=== PATIENT | female | born 1970 | race Caucasian/White ===

== ENCOUNTER 2016-12-11 22:16 | Inpatient (IN) | payer OTHER ==
[2016-12-11] MEDS ORDERED: Sodium Chloride 0.9% 1,000 ML IV ONE (22:40)
[2016-12-11] MEDS ORDERED: Insulin Regular, Human 100 Units/ML 3 ML Vial SUBCUT STA (22:41)
[2016-12-11] MEDS ORDERED: Ondansetron 4 MG/2 ML SDV IVPUSH ONE (22:49)
--- NOTE | 2016-12-11 23:38 | EDM.PDOC ---
ED HPI DIABETIC EMERGENCY - General Chief Complaint: Diabetic Complaint Stated Complaint: DIABETES PROBLEMS Time Seen by Provider: 12/11/16 22:26 Source of Information: Reports: Patient, RN notes reviewed History Limitations: Reports: No limitations - History of Present Illness INITIAL COMMENTS - FREE TEXT/NARRATIVE: The patient states that she is a type I diabetic. She uses an insulin pump. Her blood sugar was 268 around 10:00 this morning, but up to 498 around noon. It the shawn and fell, most recently 356 around 21:56. The patient states that she developed nausea and emesis around noon. She states that she has a history of diabetic ketoacidosis in the past. She states she has been hospitalized for twice, most recently about 2 years ago. She denies recent illness. - Related Data Allergies/ADRs: Allergies Allergy/AdvReac Type Severity Reaction Status Date / Time celecoxib [From Celebrex] Allergy Shortness Verified 12/11/16 22:26 of Breath cephalexin Allergy Rash Verified 12/11/16 22:26 gabapentin Allergy Chest Verified 12/11/16 22:26 Tightness metronidazole [From Flagyl] Allergy Other Verified 12/11/16 22:26 sulfamethoxazole Allergy Other Verified 12/11/16 22:26 [From Bactrim] trimethoprim [From Bactrim] Allergy Other Verified 12/11/16 22:26 adhesives Allergy Rash Uncoded 11/16/16 08:22 Home Meds: Home Meds Albuterol [Proair HFA] 2 puff INH Q4HR PRN 11/16/16 [History] Albuterol [Proventil Neb Soln] 1 hr INH QID PRN 11/16/16 [History] DULoxetine [Cymbalta] 30 mg PO DAILY 11/16/16 [History] Fluticasone Furoate [Arnuity Ellipta] 1 spray INH ASDIRECTED 11/16/16 [History] Ibuprofen [Motrin] 800 mg PO BID 11/16/16 [History] Insulin Aspart [NovoLOG] 1 injection SQ ASDIRECTED 11/16/16 [History] Loratadine [Claritin] 10 mg PO DAILY 11/16/16 [History] Metoclopramide [Reglan] 10 mg PO BID PRN 11/16/16 [History] Mometasone/Formoterol [Dulera 100-5 MCG] 2 puff INH BID 11/16/16 [History] buPROPion [Wellbutrin XL] 150 mg PO DAILY 11/16/16 [History] Past Medical History HEENT History: Reports: Allergic rhinitis Respiratory History: Reports: Asthma [employer] History: Reports: Endometriosis Psychiatric History: Reports: Depression Endocrine/Metabolic History: Reports: Diabetes, type I - Past Surgical History HEENT Surgical History: Reports: Oral surgery ([place] teeth extraction) Other HEENT Surgeries/Procedures: wears glasses Female Surgical History: Reports: Tubal ligation, Other (see below) ( Exploratory laparoscopy for endometriosis) Musculoskeletal Surgical History: Reports: Carpal tunnel (bilateral), Shoulder surgery (bilateral, arthroscopic) Social & Family History - Tobacco Use Smoking Status *Q: Current Every Day Smoker Years of Tobacco use: 20 Packs/Tins Daily: 0.5 - Caffeine Use Caffeine Use: Reports: None - Alcohol Use Alcohol Use History: Yes Alcohol Use Frequency: Rarely - Recreational Drug Use Recreational Drug Use: No - Living Situation & Occupation Living situation: Reports: , with significant other (Boyfriend, and his 18-year-old son) 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) ED ROS GENERAL - Review of Systems Review Of Systems: See Below Constitutional: Reports: no symptoms HEENT: Reports: No symptoms Respiratory: Reports: No Symptoms Cardiovascular: Reports: No symptoms Endocrine: Reports: no symptoms GI/Abdominal: Reports: No symptoms : Reports: no symptoms Musculoskeletal: Reports: no symptoms Skin: Reports: no symptoms Neurological: Reports: No Symptoms Psychiatric: Reports: No symptoms Hematologic/Lymphatic: Reports: no symptoms Immunologic: Reports: no symptoms ED EXAM GENERAL NO PERIP PULSE - Physical Exam Exam: See Below Exam Limited By: No limitations General Appearance: alert, WD/WN, mild distress Eye Exam: bilateral eye: EOMI, normal inspection Ears: normal external exam, hearing grossly normal Nose: normal inspection, no blood Throat/Mouth: Normal inspection, Normal lips, Normal teeth, Normal gums, Normal voice, No airway compromise, Other (Dry oral mucosa) Head: atraumatic, normocephalic Neck: normal inspection, supple, non-tender, full range of motion Respiratory/Chest: no respiratory distress, lungs clear, normal breath sounds, no accessory muscle use, chest non-tender, other (Tachypneic) Cardiovascular: normal peripheral pulses, no edema, no gallop, no JVD, no murmur , no rub, tachycardia (Regular) GI/Abdominal: normal bowel sounds, soft, non tender, no organomegaly, no distention, no abnormal bruit, no mass Back Exam: normal inspection, full range of motion, NT Extremities: normal inspection, normal range of motion, non-tender, normal capillary refill Neurological: alert, oriented, normal cognition, no motor/sensory deficits Psychiatric: normal affect Skin Exam: Warm, Dry, Intact, Normal color, No rash Lymphatic: no adenopathy EKG INTERPRETATION EKG Date: 12/11/16 Time: 23:51 Rhythm: other (Sinus tachycardia) Rate (beats/min): 113 [place]: normal P-wave: present QRS: normal ST-T: normal QT: normal Comparison: change from previous EKG (11/16/2016 - NSR) Course - Vital Signs Last Recorded V/S: Last Vital Signs Temp 36.3 C 12/11/16 22:23 Pulse 101 H 12/11/16 22:23 Resp 16 12/11/16 22:23 BP 123/66 12/11/16 22:23 Pulse Ox 100 12/11/16 22:23 - Orders/Labs/Meds Orders: Active Orders 24 hr Category Date Time Status Accu Check [Blood Glucose Check, Bedside] [RC] ONETIME Care 12/11/16 22:27 Active EKG Documentation Completion [RC] URGENT Care 12/11/16 23:46 Active Nothing per Oral Now Diet [DIET] Diet 12/11/16 Breakfast Active Chest 2V [CR] Stat Exams 12/11/16 22:38 Ordered BASIC METABOLIC PANEL,BMP [CHEM] Stat Lab 12/11/16 23:56 Ordered Insulin Regular, Human [HumuLIN R] 100 unit Med 12/11/16 22:45 Active Sodium Chloride 0.9% [Normal Saline] 99 ml IV TITRATE Medication Orders Insulin Human Regular 100 unit (/ Sodium Chloride) 100 mls @ 6 mls/hr IV TITRATE JASWINDER; 6 UNITS/HR PRN Reason: Protocol Last Admin: 12/11/16 23:00 Dose: 6 units/hr, 6 mls/hr Labs: Laboratory Tests 12/11/16 12/11/16 12/11/16 Range/Units 22:35 22:35 22:35 WBC 23.51 H (3.98-10.04) K/mm3 RBC 4.98 (3.98-5.22) M/mm3 Hgb 15.8 H (11.2-15.7) gm/L Hct 48.3 H (34.1-44.9) % MCV 97.0 H (79.4-94.8) fl MCH 31.7 (25.6-32.2) pg MCHC 32.7 (32.2-35.5) g/dl RDW Std Deviation 46.2 (36.4-46.3) fL Plt Count 395 H (182-369) K/mm3 MPV 11.4 (9.4-12.3) fl Neutrophils % (Manual) 88 H (40-60) % Band Neutrophils % 5 (0-10) % Lymphocytes % (Manual) 3 L (20-40) % Atypical Lymphs % 0 % Monocytes % (Manual) 4 (2-10) % Eosinophils % (Manual) 0 L (0.7-5.8) % Basophils % (Manual) 0 L (0.1-1.2) Toxic Granulation Few Platelet Estimate Adequate Plt Morphology Comment Normal RBC Morph Comment Normal Puncture Site ABG pH (7.35-7.45) ABG pCO2 (35.0-45.0) mmHg ABG pO2 (80.0-100.0) mmHg ABG HCO3 (22.0-26.0) meq/L ABG O2 Saturation (96.0-97.0) % ABG Base Excess (-2-2.0) A-a Gradient mmHg FiO2 (21.00-100.00) % Sodium 131 L (136-145) mEq/L Potassium 6.0 H (3.5-5.1) mEq/L Chloride 92 L (98-107) mEq/L Carbon Dioxide 10 L (21-32) mEq/L Anion Gap 35.0 H (5-15) BUN 28 H (7-18) mg/dL Creatinine 1.5 H (0.55-1.02) mg/dL Est Cr Clr Drug Dosing 43.07 mL/min Estimated GFR (MDRD) 38 (>60) mL/min BUN/Creatinine Ratio 18.7 H (14-18) Glucose 580 H* (74-106) mg/dL Lactic Acid (0.4-2.0) mmol/L Calcium 9.1 (8.5-10.1) mg/dL Magnesium 2.3 (1.8-2.4) mg/dl Total Bilirubin 0.6 (0.2-1.0) mg/dL AST 25 (15-37) U/L ALT 24 (14-59) U/L Alkaline Phosphatase 70 (46-116) U/L Total Protein 7.8 (6.4-8.2) g/dl Albumin 4.3 (3.4-5.0) g/dl Globulin 3.5 gm/dL Albumin/Globulin Ratio 1.2 (1-2) Urine Color (Yellow) Urine Appearance (Clear) Urine pH (5.0-8.0) Ur Specific [place] (1.005-1.030) Urine Protein (Negative) Urine Glucose (UA) (Negative) Urine Ketones (Negative) Urine Occult Blood (Negative) Urine Nitrite (Negative) Urine Bilirubin (Negative) Urine Urobilinogen (0.2-1.0) Ur Leukocyte Esterase (Negative) Urine RBC (0-5) /hpf Urine WBC (0-5) /hpf Urine WBC Clumps (NOT SEEN) /hpf Ur Epithelial Cells (0-5) /hpf Urine Bacteria (FEW) /hpf Urine Mucus (FEW) /hpf Urine Yeast (NOT SEEN) Urine HCG, Qual (NEGATIVE) Ketones 10.47 (0.0-0.3) mM 12/11/16 12/11/16 12/11/16 Range/Units 22:54 23:05 23:10 WBC (3.98-10.04) K/mm3 RBC (3.98-5.22) M/mm3 Hgb (11.2-15.7) gm/L Hct (34.1-44.9) % MCV (79.4-94.8) fl MCH (25.6-32.2) pg MCHC (32.2-35.5) g/dl RDW Std Deviation (36.4-46.3) fL Plt Count (182-369) K/mm3 MPV (9.4-12.3) fl Neutrophils % (Manual) (40-60) % Band Neutrophils % (0-10) % Lymphocytes % (Manual) (20-40) % Atypical Lymphs % % Monocytes % (Manual) (2-10) % Eosinophils % (Manual) (0.7-5.8) % Basophils % (Manual) (0.1-1.2) Toxic Granulation Platelet Estimate Plt Morphology Comment RBC Morph Comment Puncture Site Rt brachial ABG pH 7.04 L* (7.35-7.45) ABG pCO2 20.0 L (35.0-45.0) mmHg ABG pO2 96.0 (80.0-100.0) mmHg ABG HCO3 5.4 L (22.0-26.0) meq/L ABG O2 Saturation 93.0 L (96.0-97.0) % ABG Base Excess -23.6 L (-2-2.0) A-a Gradient 29 mmHg FiO2 21.00 (21.00-100.00) % Sodium (136-145) mEq/L Potassium (3.5-5.1) mEq/L Chloride (98-107) mEq/L Carbon Dioxide (21-32) mEq/L Anion Gap (5-15) BUN (7-18) mg/dL Creatinine (0.55-1.02) mg/dL Est Cr Clr Drug Dosing mL/min Estimated GFR (MDRD) (>60) mL/min BUN/Creatinine Ratio (14-18) Glucose (74-106) mg/dL Lactic Acid 3.5 H (0.4-2.0) mmol/L Calcium (8.5-10.1) mg/dL Magnesium (1.8-2.4) mg/dl Total Bilirubin (0.2-1.0) mg/dL AST (15-37) U/L ALT (14-59) U/L Alkaline Phosphatase (46-116) U/L Total Protein (6.4-8.2) g/dl Albumin (3.4-5.0) g/dl Globulin gm/dL Albumin/Globulin Ratio (1-2) Urine Color (Yellow) Urine Appearance (Clear) Urine pH (5.0-8.0) Ur Specific [place] (1.005-1.030) Urine Protein (Negative) Urine Glucose (UA) (Negative) Urine Ketones (Negative) Urine Occult Blood (Negative) Urine Nitrite (Negative) Urine Bilirubin (Negative) Urine Urobilinogen (0.2-1.0) Ur Leukocyte Esterase (Negative) Urine RBC (0-5) /hpf Urine WBC (0-5) /hpf Urine WBC Clumps (NOT SEEN) /hpf Ur Epithelial Cells (0-5) /hpf Urine Bacteria (FEW) /hpf Urine Mucus (FEW) /hpf Urine Yeast (NOT SEEN) Urine HCG, Qual Negative (NEGATIVE) Ketones (0.0-0.3) mM 12/11/16 Range/Units 23:10 WBC (3.98-10.04) K/mm3 RBC (3.98-5.22) M/mm3 Hgb (11.2-15.7) gm/L Hct (34.1-44.9) % MCV (79.4-94.8) fl MCH (25.6-32.2) pg MCHC (32.2-35.5) g/dl RDW Std Deviation (36.4-46.3) fL Plt Count (182-369) K/mm3 MPV (9.4-12.3) fl Neutrophils % (Manual) (40-60) % Band Neutrophils % (0-10) % Lymphocytes % (Manual) (20-40) % Atypical Lymphs % % Monocytes % (Manual) (2-10) % Eosinophils % (Manual) (0.7-5.8) % Basophils % (Manual) (0.1-1.2) Toxic Granulation Platelet Estimate Plt Morphology Comment RBC Morph Comment Puncture Site ABG pH (7.35-7.45) ABG pCO2 (35.0-45.0) mmHg ABG pO2 (80.0-100.0) mmHg ABG HCO3 (22.0-26.0) meq/L ABG O2 Saturation (96.0-97.0) % ABG Base Excess (-2-2.0) A-a Gradient mmHg FiO2 (21.00-100.00) % Sodium (136-145) mEq/L Potassium (3.5-5.1) mEq/L Chloride (98-107) mEq/L Carbon Dioxide (21-32) mEq/L Anion Gap (5-15) BUN (7-18) mg/dL Creatinine (0.55-1.02) mg/dL Est Cr Clr Drug Dosing mL/min Estimated GFR (MDRD) (>60) mL/min BUN/Creatinine Ratio (14-18) Glucose (74-106) mg/dL Lactic Acid (0.4-2.0) mmol/L Calcium (8.5-10.1) mg/dL Magnesium (1.8-2.4) mg/dl Total Bilirubin (0.2-1.0) mg/dL AST (15-37) U/L ALT (14-59) U/L Alkaline Phosphatase (46-116) U/L Total Protein (6.4-8.2) g/dl Albumin (3.4-5.0) g/dl Globulin gm/dL Albumin/Globulin Ratio (1-2) Urine Color Yellow (Yellow) Urine Appearance Clear (Clear) Urine pH 5.0 (5.0-8.0) Ur Specific [place] 1.025 (1.005-1.030) Urine Protein 1+ H (Negative) Urine Glucose (UA) 2+ H (Negative) Urine Ketones 3+ H (Negative) Urine Occult Blood 3+ H (Negative) Urine Nitrite Negative (Negative) Urine Bilirubin Negative (Negative) Urine Urobilinogen 0.2 (0.2-1.0) Ur Leukocyte Esterase Negative (Negative) Urine RBC 10-20 H (0-5) /hpf Urine WBC 0-5 (0-5) /hpf Urine WBC Clumps Not seen (NOT SEEN) /hpf Ur Epithelial Cells 5-10 H (0-5) /hpf Urine Bacteria Few (FEW) /hpf Urine Mucus Not seen (FEW) /hpf Urine Yeast Not seen (NOT SEEN) Urine HCG, Qual (NEGATIVE) Ketones (0.0-0.3) mM Meds: Medications Generic Name Dose Route Start Last Admin Trade Name Freq PRN Reason Stop Dose Admin Insulin Human Regular 100 unit 100 mls @ 6 mls/hr 12/11/16 22:45 12/11/16 23: 00 / Sodium Chloride IV 6 units/hr TITRATE JASWINDER 6 mls/hr Protocol Administration 6 UNITS/HR Discontinued Medications Generic Name Dose Route Start Last Admin Trade Name Freq PRN Reason Stop Dose Admin Sodium Chloride 1,000 mls @ 1,000 mls/hr 12/11/16 22:40 12/11/16 22:50 Normal Saline IV 12/11/16 23:39 1,000 mls/hr ONETIME ONE Administration Insulin Human Regular 7 unit 12/11/16 22:41 12/11/16 22:49 Humulin R SUBCUT 12/11/16 22:42 7 unit ONETIME STA Administration Protocol Ondansetron HCl 8 mg 12/11/16 22:49 12/11/16 22:54 Zofran IVPUSH 12/11/16 22:50 8 mg ONETIME ONE Administration - Radiology Interpretation Free Text/Narrative:: Two-view chest radiograph appears to be grossly normal. Cardiac silhouette is within normal limits. No pulmonary vascular congestion. No pleural effusions. No focal infiltrate. No pneumothorax. Bilateral nipple shadows noted. Formal read per the Radiologist pending. - Re-Assessments/Exams Free Text/Narrative Re-Assessment/Exam: 12/11/16 23:47 Test results discussed with the patient and her boyfriend. The patient is suffering from severe diabetic ketoacidosis. No infection found. She will need to be admitted to the ICU. Case then discussed with Dr. Choudhury at 23:45. He accepts the patient for admission to the ICU. Departure - Departure Time of Disposition: 23:58 Disposition: Admitted As Inpatient 68 Condition: fair Clinical Impression: Diabetic ketoacidosis - My Orders Last 24 Hours: My Active Orders 12/11/16 22:27 Accu Check [Blood Glucose Check, Bedside] [RC] ONETIME 12/11/16 22:38 Chest 2V [CR] Stat 12/11/16 22:45 Insulin Regular, Human [HumuLIN R] 100 unit Sodium Chloride 0.9% [Normal Saline] 99 ml IV TITRATE 12/11/16 23:46 EKG Documentation Completion [RC] URGENT 12/11/16 23:56 BASIC METABOLIC PANEL,BMP [CHEM] Stat 12/11/16 Breakfast Nothing per Oral Now Diet [DIET] - Assessment/Plan Last 24 Hours: My Active Orders 12/11/16 22:27 Accu Check [Blood Glucose Check, Bedside] [RC] ONETIME 12/11/16 22:38 Chest 2V [CR] Stat 12/11/16 22:45 Insulin Regular, Human [HumuLIN R] 100 unit Sodium Chloride 0.9% [Normal Saline] 99 ml IV TITRATE 12/11/16 23:46 EKG Documentation Completion [RC] URGENT 12/11/16 23:56 BASIC METABOLIC PANEL,BMP [CHEM] Stat 12/11/16 Breakfast Nothing per Oral Now Diet [DIET]
[2016-12-12] MEDS ORDERED: Ondansetron 4 MG/2 ML SDV IV PRN (01:20)
[2016-12-12] MEDS ORDERED: Acetaminophen 325 MG Tab PO PRN (01:20)
[2016-12-12] MEDS ORDERED: Bisacodyl 5 MG Tab PO PRN (01:20)
[2016-12-12] MEDS ORDERED: Polyethylene Glycol 3350 Powder 17 GM Packet PO PRN (01:20)
[2016-12-12] MEDS ORDERED: Temazepam 15 MG Cap PO PRN (01:20)
[2016-12-12] MEDS ORDERED: Albuterol/Ipratropium 3.0-0.5 MG/3 ML Neb Soln NEB PRN (01:20)
[2016-12-12] MEDS ORDERED: HYDROmorphone 1 MG/ML Syringe IVPUSH PRN (01:20)
[2016-12-12] MEDS ORDERED: LORazepam 2 MG/ML MDV IV PRN (01:20)
[2016-12-12] MEDS ORDERED: Promethazine 12.5 MG in Sodium Chloride 0.9% 50 ML IV PRN (01:20)
[2016-12-12] MEDS ORDERED: Acetaminophen/HYDROcodone 325-5 MG Tab PO PRN (01:20)
[2016-12-12] MEDS ORDERED: Metoclopramide 10 MG Tab PO PRN (01:24)
[2016-12-12] MEDS ORDERED: FLUTICASONE FUROATE INH SCH (01:30)
[2016-12-12] MEDS ORDERED: INSULIN ASPART SQ SCH (01:30)
[2016-12-12] MEDS ORDERED: Sodium Chloride 0.9% 1,000 ML IV SCH (01:30)
--- NOTE | 2016-12-12 01:35 | PCM.HP ---
H&P History of Present Illness - General Date of Service: 12/12/16 Admit Problem/Dx: DKA Source of Information: Patient, Family, Provider, RN notes reviewed History Limitations: Reports: No limitations - History of Present Illness Initial Comments - Free Text/Narative: his is a 46 yo white female with past medical hx/o DM1 on insulin pump who comes in with symptomatic hyperglycemia and was found in DKA. Her initial ED work up shows CBC remarkable for WBC of 23.51, Hgb of 15.8, Hct of 48.3 and Platelet of 395. Her chemistry is significant for Na of 131, K 6, Cl 92, CO2 10 , AG 35, BUN 28, Cr 1.5, BS 580, and LA 3.5. Her UA and CXR shows not acute abnormal findings. She was admitted for treatment of DKA. Lower Back Pain Score (Numeric/FACES): 6 - Related Data Allergies/Adverse Reactions: Allergies Allergy/AdvReac Type Severity Reaction Status Date / Time celecoxib [From Celebrex] Allergy Shortness Verified 12/11/16 22:26 of Breath cephalexin Allergy Rash Verified 12/11/16 22:26 gabapentin Allergy Chest Verified 12/11/16 22:26 Tightness metronidazole [From Flagyl] Allergy Other Verified 12/11/16 22:26 sulfamethoxazole Allergy Other Verified 12/11/16 22:26 [From Bactrim] trimethoprim [From Bactrim] Allergy Other Verified 12/11/16 22:26 adhesives Allergy Rash Uncoded 11/16/16 08:22 Home Medications: Home Meds Albuterol [Proair HFA] 2 puff INH Q4HR PRN 11/16/16 [History] Albuterol [Proventil Neb Soln] 1 hr INH QID PRN 11/16/16 [History] DULoxetine [Cymbalta] 30 mg PO DAILY 11/16/16 [History] Fluticasone Furoate [Arnuity Ellipta] 1 spray INH ASDIRECTED 11/16/16 [History] Ibuprofen [Motrin] 800 mg PO BID 11/16/16 [History] Insulin Aspart [NovoLOG] 1 injection SQ ASDIRECTED 11/16/16 [History] Loratadine [Claritin] 10 mg PO DAILY 11/16/16 [History] Metoclopramide [Reglan] 10 mg PO BID PRN 11/16/16 [History] Mometasone/Formoterol [Dulera 100-5 MCG] 2 puff INH BID 11/16/16 [History] buPROPion [Wellbutrin XL] 150 mg PO DAILY 11/16/16 [History] Past Medical History HEENT History: Reports: Allergic rhinitis Respiratory History: Reports: Asthma 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 History: Reports: Endometriosis Psychiatric History: Reports: Depression Endocrine/Metabolic History: Reports: Diabetes, type I - Past Surgical History HEENT Surgical History: Reports: Oral surgery ([place] teeth extraction) Other HEENT Surgeries/Procedures: wears glasses Female Surgical History: Reports: Tubal ligation, Other (see below) ( Exploratory laparoscopy for endometriosis) Musculoskeletal Surgical History: Reports: Carpal tunnel (bilateral), Shoulder surgery (bilateral, arthroscopic) Social & Family History - Tobacco Use Smoking Status *Q: Current Every Day Smoker Years of Tobacco use: 20 Packs/Tins Daily: 0.5 - Caffeine Use Caffeine Use: Reports: None - Recreational Drug Use Recreational Drug Use: No - Living Situation & Occupation Living situation: Reports: , with significant other (Boyfriend, and his 18-year-old son) 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 Denies: fever, chills HEENT: Reports: contact lenses Pulmonary: Reports: No Symptoms Cardiovascular: Denies: chest pain Gastrointestinal: Reports: Decreased appetite, Nausea, Vomiting. Denies: Abdominal pain Genitourinary: Reports: no symptoms Musculoskeletal: Reports: no symptoms Skin: Denies: cyanosis, rash, erythema Psychiatric: Denies: depression, anxiety, hallucinations Neurological: Denies: Confusion, Difficulty Walking, Gait Disturbance Hematologic/Lymphatic: Reports: no symptoms Immunologic: Reports: no symptoms Exam - Exam Exam: See Below - Vital Signs Vital Signs: Last Vital Signs Temp 36.3 C 12/11/16 22:23 Pulse 112 H 12/12/16 00:45 Resp 22 H 12/12/16 00:45 BP 125/68 12/12/16 00:45 Pulse Ox 100 12/12/16 00:45 Weight: 68.039 kg - Exam General: alert, oriented, cooperative, mild distress HEENT: Conjunctiva clear, EACs clear, EOMI, Hearing intact, Nares patent, Normal nasal septum, Posterior pharynx clear, PERRLA Neck: supple, trachea midline, 2+ carotid pulse wo bruit Lungs: Clear to auscultation, Normal respiratory effort Cardiovascular: regular rate, tachycardia Abdomen: normal bowel sounds, soft (Female) Exam: Deferred Rectal (Female) Exam: Deferred Back Exam: normal inspection, decreased range of motion Extremities: normal inspection, normal pulses. No: clubbing, cyanosis, calf tenderness, edema Peripheral Pulses: 3+: posterior tibial (L), posterior tibial (R), dorsalis pedis (L), dorsalis pedis (R) Skin: warm, dry, intact Neuro Extensive - Mental Status: oriented x3, normal cognition, memory intact Neuro Extensive - Motor, Sensory, Reflexes: CN II-XII intact, normal gait Psychiatric: alert, normal affect, anxious - Patient Data Result Diagrams: 12/12/16 05:23 12/12/16 08:30 EKG INTERPRETATION EKG Date: 12/11/16 Time: 23:53 Rhythm: other (Sinus Tachycardia) Rate (beats/min): 113 [place]: normal P-wave: present QRS: normal ST-T: normal QT: normal Comparison: change from previous EKG *Q Meaningful Use (ADM) - VTE *Q VTE Criteria *Q: - Stroke *Q Stroke Criteria *Q: - AMI *Q AMI Criteria *Q: Problem List Initiated/Reviewed/Updated: Yes Orders Last 24hrs: Active Orders 24 hr Category Date Time Status Height and Weight [RC] DAILY Care 12/12/16 01:20 Ordered Intake and Output [RC] QSHIFT Care 12/12/16 01:22 Ordered Oxygen Therapy [RC] PRN Care 12/12/16 01:21 Ordered RT Aerosol Therapy [RC] ASDIRECTED Care 12/12/16 01:23 Ordered Up With Assistance [RC] ASDIRECTED Care 12/12/16 01:20 Ordered Up ad Tali [RC] ASDIRECTED Care 12/12/16 01:20 Ordered VTE/DVT Education [RC] PER UNIT ROUTINE Care 12/12/16 01:21 Ordered Vital Signs [RC] Q4H Care 12/12/16 01:21 Ordered Consult to Case Management [CONS] Routine Cons 12/12/16 01:23 Ordered Consult to Diabetic Nurse Specialist [CONS] Routine Cons 12/12/16 01:23 Ordered Consult to Clinical Specialist Vascular [CONS] Routine Cons 12/12/16 01:23 Ordered Consult to Intern Brand [CONS] Routine Cons 12/12/16 01:23 Ordered Consistent Carbohydrate Diet [DIET] Diet 12/12/16 Breakfast Ordered C-REACTIVE PROTEIN [CHEM] AM Lab 12/12/16 05:11 Ordered CBC WITH AUTO DIFF [HEME] AM Lab 12/12/16 05:11 Ordered CBC WITH AUTO DIFF [HEME] AM Lab 12/13/16 05:11 Ordered CBC WITH AUTO DIFF [HEME] AM Lab 12/14/16 05:11 Ordered CBC WITH AUTO DIFF [HEME] AM Lab 12/15/16 05:11 Ordered CBC WITH AUTO DIFF [HEME] AM Lab 12/16/16 05:11 Ordered MAGNESIUM [CHEM] AM Lab 12/12/16 05:11 Ordered MAGNESIUM [CHEM] AM Lab 12/13/16 05:11 Ordered MAGNESIUM [CHEM] AM Lab 12/14/16 05:11 Ordered MAGNESIUM [CHEM] AM Lab 12/15/16 05:11 Ordered MAGNESIUM [CHEM] AM Lab 12/16/16 05:11 Ordered Acetaminophen [Tylenol] Med 12/12/16 01:20 Ordered 650 mg PO Q4H PRN Acetaminophen/HYDROcodone [[place] 325-5 MG] Med 12/12/16 01:20 Ordered 1 tab PO Q4H PRN Albuterol/Ipratropium [DuoNeb 3.0-0.5 MG/3 ML] Med 12/12/16 01:20 Ordered 3 ml NEB Q4H PRN Bisacodyl [Dulcolax] Med 12/12/16 01:20 Ordered 5 mg PO DAILY PRN DULoxetine [Cymbalta] Med 12/12/16 09:00 Ordered 30 mg PO DAILY Docusate Sodium/Sennosides [Senna Plus] Med 12/12/16 01:20 Ordered 1 tab PO BID PRN Enoxaparin [Lovenox] Med 12/12/16 09:00 Ordered 30 mg SUBCUT DAILY Fluticasone Furoate [Arnuity Ellipta] Med 12/12/16 01:30 Ordered 1 spray INH ASDIRECTED HYDROmorphone [Dilaudid] Med 12/12/16 01:20 Ordered 0.25 mg IVPUSH Q2H PRN Insulin Aspart Med 12/12/16 01:30 Ordered 1 injection SQ ASDIRECTED LORazepam [Ativan] Med 12/12/16 01:20 Ordered 1 mg IV Q6H PRN Loratadine [Claritin] Med 12/12/16 09:00 Ordered 10 mg PO DAILY Metoclopramide [Reglan] Med 12/12/16 01:24 Ordered 10 mg PO BID PRN Mometasone/Formoterol [Dulera 100-5 MCG] Med 12/12/16 09:00 Ordered 2 puff IH BID Ondansetron [Zofran] Med 12/12/16 01:20 Ordered 4 mg IV Q6H PRN Pantoprazole [Protonix IV] Med 12/12/16 09:00 Ordered 40 mg IV Q12HR Polyethylene Glycol 3350 [MiraLAX] Med 12/12/16 01:20 Ordered 17 gm PO DAILY PRN Promethazine [Phenergan] 12.5 mg Med 12/12/16 01:20 Ordered Sodium Chloride 0.9% [Normal Saline] 50 ml IV Q6H Sodium Chloride 0.9% @ 125 MLS/HR (1000ml) Med 12/12/16 01:30 Ordered Sodium Chloride 0.9% [Normal Saline] 1,000 ml IV ASDIRECTED Temazepam [Restoril] Med 12/12/16 01:20 Ordered 30 mg PO BEDTIME PRN buPROPion [Wellbutrin XL] Med 12/12/16 09:00 Ordered 150 mg PO DAILY Resuscitation Status Routine Resus Stat 12/12/16 01:20 Ordered Medication Orders Acetaminophen (Tylenol) 650 mg PO Q4H PRN PRN Reason: Pain (Mild 1-3)/fever Acetaminophen/Hydrocodone Bitart ([place] 325-5 Mg) 1 tab PO Q4H PRN PRN Reason: Pain (moderate 4-6) Albuterol/Ipratropium (Duoneb 3.0-0.5 Mg/3 Ml) 3 ml NEB Q4H PRN PRN Reason: Shortness Of Breath/wheezing Bisacodyl (Dulcolax) 5 mg PO DAILY PRN PRN Reason: Constipation Bupropion HCl (Wellbutrin Xl) 150 mg PO DAILY JASWINDER Duloxetine HCl (Cymbalta) 30 mg PO DAILY JASWINDER Enoxaparin Sodium (Lovenox) 30 mg SUBCUT DAILY JASWINDER Hydromorphone HCl (Dilaudid) 0.25 mg IVPUSH Q2H PRN PRN Reason: Pain (severe 7-10) Insulin Human Regular 100 unit (/ Sodium Chloride) 100 mls @ 6 mls/hr IV TITRATE JASWINDER; 6 UNITS/HR PRN Reason: Protocol Last Admin: 12/11/16 23:00 Dose: 6 units/hr, 6 mls/hr Promethazine HCl 12.5 mg/ (Sodium Chloride) 50.5 mls @ 100 mls/hr IV Q6H PRN PRN Reason: Nausea/Vomiting Sodium Chloride (Normal Saline) 1,000 mls @ 125 mls/hr IV ASDIRECTED JASWINDER Loratadine (Claritin) 10 mg PO DAILY JASWINDER Lorazepam (Ativan) 1 mg IV Q6H PRN PRN Reason: Anxiety Metoclopramide HCl (Reglan) 10 mg PO BID PRN PRN Reason: Heartburn Mometasone Furoate/Formoterol Fumar (Dulera 100-5 Mcg) 2 puff IH BIDRT JASWINDER Non-Formulary Medication (Fluticasone Furoate [Arnuity Ellipta]) 1 spray INH ASDIRECTED [facility] Non-Formulary Medication (Insulin Aspart) 1 injection SQ ASDIRECTED JASWINDER Ondansetron HCl (Zofran) 4 mg IV Q6H PRN PRN Reason: Nausea/Vomiting Pantoprazole Sodium (Protonix Iv) 40 mg IV Q12HR [facility] Polyethylene Glycol (Miralax) 17 gm PO DAILY PRN PRN Reason: Constipation Senna/Docusate Sodium (Senna Plus) 1 tab PO BID PRN PRN Reason: Constipation Temazepam (Restoril) 30 mg PO BEDTIME PRN PRN Reason: Sleep Assessment/Plan Comment:: Assessment/Plan: DKA w/o Coma - Krystina 10.47 - Long standing hx/o DM1 - She is on insulin pump - DKA protocol - Aggressive fluid hydration Leukocytosis - Likely 2/2 stress - UA and CXR were both negative Nicotine Dependence - Offered Nicotine Patch Dehydration - Aggressively hydrating Chronic: Asthma AR Depression Plan: Admit to ICU DKA protocol Hold insulin pump Resume Home Meds Routine AM Labs PT/OT consult SW/CM for d/c planning School Services Officer
--- NOTE | 2016-12-12 08:03 | PCM.PN ---
- General Info Date of Service: 12/12/16 Admission Dx/Problem (Free Text): DKA Subjective Update: Follow Up Functional Status: Reports: pain controlled, ambulating, urinating. Denies: tolerating diet, new symptoms - Review of Systems General: Denies: Fever, Malaise HEENT: Reports: no symptoms Pulmonary: Denies: shortness of breath Cardiovascular: Denies: Chest Pain Gastrointestinal: Denies: Abdominal pain, Nausea, Vomiting Genitourinary: Reports: no symptoms Musculoskeletal: Reports: no symptoms Skin: Reports: no symptoms Neurological: Denies: Confusion Psychiatric: Denies: depression, anxiety, hallucinations Systems Review Comment:: She did not sleep well last night due to slamming door adjacent to her. She feels better however. She is still on insulin drip awaiting repeat BMP. - Patient Data Vitals - most recent: Last Vital Signs Temp 36.3 C 12/12/16 02:33 Pulse 110 H 12/12/16 03:52 Resp 20 12/12/16 03:52 BP 132/69 12/12/16 03:52 Pulse Ox 96 12/12/16 03:52 Weight - most recent: 68.039 kg I&O - last 24 hours: Intake & Output 12/11/16 12/12/16 12/12/16 22:59 06:59 14:59 Intake Total 1025 Balance 1025 Lab Results last 24 hrs: Laboratory Results - last 24 hr 12/12/16 12/12/16 12/12/16 Range/Units 01:50 05:23 05:23 WBC 22.22 H (3.98-10.04) K/mm3 RBC 4.66 (3.98-5.22) M/mm3 Hgb 14.8 (11.2-15.7) gm/L Hct 43.7 (34.1-44.9) % MCV 93.8 (79.4-94.8) fl MCH 31.8 (25.6-32.2) pg MCHC 33.9 (32.2-35.5) g/dl RDW Std Deviation 43.0 (36.4-46.3) fL Plt Count 391 H (182-369) K/mm3 MPV 11.3 (9.4-12.3) fl Neut % (Auto) 87.5 H (34.0-71.1) % Lymph % (Auto) 4.2 L (19.3-51.7) % [place] % (Auto) 7.8 (4.7-12.5) % Eos % (Auto) 0.2 L (0.7-5.8) Baso % (Auto) 0.0 L (0.1-1.2) % Neut # 19.41 H (1.56-6.13) K/mm3 Lymph # 0.94 L (1.18-3.74) K/mm3 [place] # 1.74 H (0.24-0.36) K/mm3 Eos # 0.05 (0.04-0.36) K/mm3 Baso # 0.01 (0.01-0.08) K/mm3 Manual Slide Review Abnormal smear POC Glucose 351 H (70-105) mg/dL Magnesium 2.1 (1.8-2.4) mg/dl C-Reactive Protein 0.8 (<1.0) mg/dL Med Orders - Current: Current Medications Acetaminophen (Tylenol) 650 mg PO Q4H PRN PRN Reason: Pain (Mild 1-3)/fever Acetaminophen/Hydrocodone Bitart ([place] 325-5 Mg) 1 tab PO Q4H PRN PRN Reason: Pain (moderate 4-6) Albuterol/Ipratropium (Duoneb 3.0-0.5 Mg/3 Ml) 3 ml NEB Q4H PRN PRN Reason: Shortness Of Breath/wheezing Bisacodyl (Dulcolax) 5 mg PO DAILY PRN PRN Reason: Constipation Bupropion HCl (Wellbutrin Xl) 150 mg PO DAILY JASWINDER Duloxetine HCl (Cymbalta) 30 mg PO DAILY JASWINDER Enoxaparin Sodium (Lovenox) 30 mg SUBCUT DAILY JASWINDER Hydromorphone HCl (Dilaudid) 0.25 mg IVPUSH Q2H PRN PRN Reason: Pain (severe 7-10) Insulin Human Regular 100 unit (/ Sodium Chloride) 100 mls @ 6 mls/hr IV TITRATE JASWINDER; 6 UNITS/HR PRN Reason: Protocol Last Titration: 12/12/16 02:50 Dose: 5 units/hr, 5 mls/hr Promethazine HCl 12.5 mg/ (Sodium Chloride) 50.5 mls @ 100 mls/hr IV Q6H PRN PRN Reason: Nausea/Vomiting Sodium Chloride (Normal Saline) 1,000 mls @ 125 mls/hr IV ASDIRECTED JASWINDER Loratadine (Claritin) 10 mg PO DAILY JASWINDER Lorazepam (Ativan) 1 mg IV Q6H PRN PRN Reason: Anxiety Metoclopramide HCl (Reglan) 10 mg PO BID PRN PRN Reason: Heartburn Mometasone Furoate/Formoterol Fumar (Dulera 100-5 Mcg) 2 puff IH BID JASWINDER Non-Formulary Medication (Fluticasone Furoate [Arnuity Ellipta]) 1 spray INH ASDIRECTED JASWINDER Non-Formulary Medication (Insulin Aspart) 1 injection SQ ASDIRECTED JASWINDER Ondansetron HCl (Zofran) 4 mg IV Q6H PRN PRN Reason: Nausea/Vomiting Pantoprazole Sodium (Protonix Iv) 40 mg IV Q12HR JASWINDER Polyethylene Glycol (Miralax) 17 gm PO DAILY PRN PRN Reason: Constipation Senna/Docusate Sodium (Senna Plus) 1 tab PO BID PRN PRN Reason: Constipation Temazepam (Restoril) 30 mg PO BEDTIME PRN PRN Reason: Sleep Last Admin: 12/12/16 03:00 Dose: 30 mg Discontinued Medications Sodium Chloride (Normal Saline) 1,000 mls @ 1,000 mls/hr IV ONETIME ONE Stop: 12/11/16 23:39 Last Admin: 12/11/16 22:50 Dose: 1,000 mls/hr Insulin Human Regular (Humulin R) 7 unit SUBCUT ONETIME STA PRN Reason: Protocol Stop: 12/11/16 22:42 Last Admin: 12/11/16 22:49 Dose: 7 unit Ondansetron HCl (Zofran) 8 mg IVPUSH ONETIME ONE Stop: 12/11/16 22:50 Last Admin: 12/11/16 22:54 Dose: 8 mg - Exam General: alert, oriented, cooperative, no acute distress HEENT: Pupils equal, Pupils reactive, EOMI, Mucous membr. moist/pink Neck: supple, trachea midline, no JVD, no thyromegaly Lungs: Clear to auscultation, Normal respiratory effort Cardiovascular: Regular Rate, Regular Rhythm Abdomen: bowel sounds present, soft, no tenderness, no distension (Female) Exam: Deferred Back Exam: normal inspection, decreased range of motion Extremities: no edema, normal pulses, no tenderness/swelling, no clubbing, no cyanosis, no calf tenderness Skin: warm, dry, intact Neurological: no new focal deficit Psy/Mental Status: alert, normal affect, normal mood - Problem List Review Problem List Initiated/Reviewed/Updated: Yes - My Orders Last 24 Hours: My Active Orders 12/12/16 01:20 Height and Weight [RC] DAILY Up With Assistance [RC] ASDIRECTED Up ad Tali [RC] ASDIRECTED Acetaminophen [Tylenol] 650 mg PO Q4H PRN Acetaminophen/HYDROcodone [[place] 325-5 MG] 1 tab PO Q4H PRN Albuterol/Ipratropium [DuoNeb 3.0-0.5 MG/3 ML] 3 ml NEB Q4H PRN Bisacodyl [Dulcolax] 5 mg PO DAILY PRN Docusate Sodium/Sennosides [Senna Plus] 1 tab PO BID PRN HYDROmorphone [Dilaudid] 0.25 mg IVPUSH Q2H PRN LORazepam [Ativan] 1 mg IV Q6H PRN Ondansetron [Zofran] 4 mg IV Q6H PRN Polyethylene Glycol 3350 [MiraLAX] 17 gm PO DAILY PRN Promethazine [Phenergan] 12.5 mg Sodium Chloride 0.9% [Normal Saline] 50 ml IV Q6H Temazepam [Restoril] 30 mg PO BEDTIME PRN Resuscitation Status Routine 12/12/16 01:21 VTE/DVT Education [RC] PER UNIT ROUTINE Vital Signs [RC] Q4HR 12/12/16 01:22 Intake and Output [RC] QSHIFT 12/12/16 01:23 RT Aerosol Therapy [RC] ASDIRECTED Consult to Case Management [CONS] Routine Consult to Diabetic Nurse Specialist [CONS] Routine Consult to Pigment Pumper [CONS] Routine Consult to [employer] [CONS] Routine 12/12/16 01:24 Metoclopramide [Reglan] 10 mg PO BID PRN 12/12/16 01:30 Fluticasone Furoate [Arnuity Ellipta] 1 spray INH ASDIRECTED Insulin Aspart 1 injection SQ ASDIRECTED Sodium Chloride 0.9% [Normal Saline] 1,000 ml IV ASDIRECTED 12/12/16 08:01 BMP [BASIC METABOLIC PANEL,BMP] [CHEM] Urgent MG [MAGNESIUM] [CHEM] Urgent 12/12/16 09:00 DULoxetine [Cymbalta] 30 mg PO DAILY Enoxaparin [Lovenox] 30 mg SUBCUT DAILY Loratadine [Claritin] 10 mg PO DAILY Mometasone/Formoterol [Dulera 100-5 MCG] 2 puff IH BID Pantoprazole [Protonix IV] 40 mg IV Q12HR buPROPion [Wellbutrin XL] 150 mg PO DAILY 12/12/16 Breakfast Consistent Carbohydrate Diet [DIET] 12/13/16 05:11 CBC WITH AUTO DIFF [HEME] AM MAGNESIUM [CHEM] AM 12/14/16 05:11 CBC WITH AUTO DIFF [HEME] AM MAGNESIUM [CHEM] AM 12/15/16 05:11 CBC WITH AUTO DIFF [HEME] AM MAGNESIUM [CHEM] AM 12/16/16 05:11 CBC WITH AUTO DIFF [HEME] AM MAGNESIUM [CHEM] AM - Assessment Assessment:: Assessment/Plan: DKA w/ Coma - Long standing hx/o DM1 - She is on insulin pump - Her AG is almost closed, she should be okay to start small diet - Will resume her insulin pump Leukocytosis - Likely 2/2 stress - UA and CXR were both negative Nicotine Dependence - Offered Nicotine Patch Resolved: S/P Dehydration Chronic: Asthma AR Depression Plan: She is clinically stable D/c drip and resume insulin pump Routine AM Labs PT/OT consult SW/CM for d/c planning 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
[2016-12-12] MEDS ORDERED: buPROPion 150 MG Tab.ER PO SCH (09:00)
[2016-12-12] MEDS ORDERED: Enoxaparin 30 MG/0.3 ML Syringe SUBCUT SCH (09:00)
[2016-12-12] MEDS ORDERED: DULoxetine 30 MG Cap PO SCH (09:00)
[2016-12-12] MEDS ORDERED: Formoterol/Mometasone 100-5 MCG 8.8 GM Inhaler IH SCH (09:00)
[2016-12-12] MEDS ORDERED: Loratadine 10 MG Tab PO SCH (09:00)
[2016-12-12] MEDS ORDERED: Pantoprazole 40 MG Vial IV SCH (09:00)
[2016-12-12] MEDS ORDERED: 50% Dextrose in Water 50 ML Syringe IVPUSH ONE (10:15)
[2016-12-12 17:21] VITALS: BP 116/68
--- NOTE | 2016-12-12 17:48 | PCM.DCSUM1 ---
Discharge Summary - Hospital Course Brief History: This is a 46 yo white female with past medical hx/o DM1 on insulin pump who comes in with symptomatic hyperglycemia and was found in DKA. She wa admitted for treatment of DKA. - Discharge Data Discharge Date: 12/12/16 Discharge Disposition: Against Medical Advice 07 Condition: Good - Discharge Diagnosis/Problem(s) (1) Leukocytosis SNOMED Code(s): 517407551, 078217824 ICD Code: D72.829 - ELEVATED WHITE BLOOD CELL COUNT, UNSPECIFIED Status: Acute (2) Diabetic ketoacidosis SNOMED Code(s): 717927111, 224504116 ICD Code: E13.10 - OTH DIABETES MELLITUS WITH KETOACIDOSIS WITHOUT COMA Status: Resolved Qualifiers: Diabetes mellitus type: type 1 Diabetes mellitus complication detail: without coma Qualified Code(s): E10.10 - Type 1 diabetes mellitus with ketoacidosis without coma - Patient Summary/Data Operative Procedure(s) Performed: None Complications: Unknown Consults: Consultations 12/12/16 01:23 Consult to Case Management [CONS] Routine Consult to Diabetic Nurse Specialist [CONS] Routine Consult to Slitting Machine Operator Helper [CONS] Routine Consult to Primary Care Physician [CONS] Routine Hospital Course: Patient was primarily admitted for medical management of DKA. She was put on insulin drip to improve hyperglycemia. Once she was off insulin drip, we tried her back on her insulin pump. We did not know how her blood sugar would be like since she elected to leave [facility] despite my disagreement. After explaining the possible consequences of her not receiving full treatment, patient left the facility with her significant other. - Discharge Plan Home Medications: Home Meds Albuterol [Proair HFA] 2 puff INH Q4HR PRN 11/16/16 [History] Albuterol [Proventil Neb Soln] 1 hr INH QID PRN 11/16/16 [History] DULoxetine [Cymbalta] 30 mg PO DAILY 11/16/16 [History] Fluticasone Furoate [Arnuity Ellipta] 1 spray INH ASDIRECTED 11/16/16 [History] Ibuprofen [Motrin] 800 mg PO BID 11/16/16 [History] Insulin Aspart [NovoLOG] 1 injection SQ ASDIRECTED 11/16/16 [History] Loratadine [Claritin] 10 mg PO DAILY 11/16/16 [History] Metoclopramide [Reglan] 10 mg PO BID PRN 11/16/16 [History] Mometasone/Formoterol [Dulera 100-5 MCG] 2 puff INH BID 11/16/16 [History] buPROPion [Wellbutrin XL] 150 mg PO DAILY 11/16/16 [History] Referrals: PCP,Unknown [Ordering Only Provider] - - Discharge Summary/Plan Comment DC Time >30 min.: No Discharge Summary/Plan Comment: Patient left AMA - General Info Date of Service: 12/12/16 Admission Dx/Problem (Free Text: DKA Subjective Update: Follow Up - Review of Systems Systems Review Comment: Patient Left AMA - Patient Data Vitals - Most Recent: Last Vital Signs Temp 36.8 C 12/12/16 16:00 Pulse 110 H 12/12/16 12:00 Resp 20 12/12/16 16:00 BP 116/68 12/12/16 16:00 Pulse Ox 95 12/12/16 16:00 Weight - Most Recent: 68.039 kg I&O - Last 24 hours: Intake & Output 12/12/16 12/12/16 12/12/16 06:59 14:59 22:59 Intake Total 1025 2500 Output Total 1500 Balance 1025 1000 Lab Results - Last 24 hrs: Laboratory Results - last 24 hr 12/12/16 12/12/16 12/12/16 Range/Units 01:50 05:23 05:23 WBC 22.22 H (3.98-10.04) K/mm3 RBC 4.66 (3.98-5.22) M/mm3 Hgb 14.8 (11.2-15.7) gm/L Hct 43.7 (34.1-44.9) % MCV 93.8 (79.4-94.8) fl MCH 31.8 (25.6-32.2) pg MCHC 33.9 (32.2-35.5) g/dl RDW Std Deviation 43.0 (36.4-46.3) fL Plt Count 391 H (182-369) K/mm3 MPV 11.3 (9.4-12.3) fl Neut % (Auto) 87.5 H (34.0-71.1) % Lymph % (Auto) 4.2 L (19.3-51.7) % [place] % (Auto) 7.8 (4.7-12.5) % Eos % (Auto) 0.2 L (0.7-5.8) Baso % (Auto) 0.0 L (0.1-1.2) % Neut # 19.41 H (1.56-6.13) K/mm3 Lymph # 0.94 L (1.18-3.74) K/mm3 [place] # 1.74 H (0.24-0.36) K/mm3 Eos # 0.05 (0.04-0.36) K/mm3 Baso # 0.01 (0.01-0.08) K/mm3 Manual Slide Review Abnormal smear Sodium (136-145) mEq/L Potassium (3.5-5.1) mEq/L Chloride (98-107) mEq/L Carbon Dioxide (21-32) mEq/L Anion Gap (5-15) BUN (7-18) mg/dL Creatinine (0.55-1.02) mg/dL Est Cr Clr Drug Dosing mL/min Estimated GFR (MDRD) (>60) mL/min BUN/Creatinine Ratio (14-18) Glucose (74-106) mg/dL POC Glucose 351 H (70-105) mg/dL Calcium (8.5-10.1) mg/dL Magnesium 2.1 (1.8-2.4) mg/dl C-Reactive Protein 0.8 (<1.0) mg/dL 12/12/16 12/12/16 12/12/16 Range/Units 08:02 08:30 08:57 WBC (3.98-10.04) K/mm3 RBC (3.98-5.22) M/mm3 Hgb (11.2-15.7) gm/L Hct (34.1-44.9) % MCV (79.4-94.8) fl MCH (25.6-32.2) pg MCHC (32.2-35.5) g/dl RDW Std Deviation (36.4-46.3) fL Plt Count (182-369) K/mm3 MPV (9.4-12.3) fl Neut % (Auto) (34.0-71.1) % Lymph % (Auto) (19.3-51.7) % [place] % (Auto) (4.7-12.5) % Eos % (Auto) (0.7-5.8) Baso % (Auto) (0.1-1.2) % Neut # (1.56-6.13) K/mm3 Lymph # (1.18-3.74) K/mm3 [place] # (0.24-0.36) K/mm3 Eos # (0.04-0.36) K/mm3 Baso # (0.01-0.08) K/mm3 Manual Slide Review Sodium 139 (136-145) mEq/L Potassium 4.6 (3.5-5.1) mEq/L Chloride 107 (98-107) mEq/L Carbon Dioxide 21 (21-32) mEq/L Anion Gap 15.6 H (5-15) BUN 27 H (7-18) mg/dL Creatinine 1.2 H (0.55-1.02) mg/dL Est Cr Clr Drug Dosing 53.83 mL/min Estimated GFR (MDRD) 49 (>60) mL/min BUN/Creatinine Ratio 22.5 H (14-18) Glucose 107 H (74-106) mg/dL POC Glucose 139 H 97 (70-105) mg/dL Calcium 8.3 L (8.5-10.1) mg/dL Magnesium 2.1 (1.8-2.4) mg/dl C-Reactive Protein (<1.0) mg/dL 12/12/16 12/12/16 12/12/16 Range/Units 10:03 11:36 12:41 WBC (3.98-10.04) K/mm3 RBC (3.98-5.22) M/mm3 Hgb (11.2-15.7) gm/L Hct (34.1-44.9) % MCV (79.4-94.8) fl MCH (25.6-32.2) pg MCHC (32.2-35.5) g/dl RDW Std Deviation (36.4-46.3) fL Plt Count (182-369) K/mm3 MPV (9.4-12.3) fl Neut % (Auto) (34.0-71.1) % Lymph % (Auto) (19.3-51.7) % [place] % (Auto) (4.7-12.5) % Eos % (Auto) (0.7-5.8) Baso % (Auto) (0.1-1.2) % Neut # (1.56-6.13) K/mm3 Lymph # (1.18-3.74) K/mm3 [place] # (0.24-0.36) K/mm3 Eos # (0.04-0.36) K/mm3 Baso # (0.01-0.08) K/mm3 Manual Slide Review Sodium (136-145) mEq/L Potassium (3.5-5.1) mEq/L Chloride (98-107) mEq/L Carbon Dioxide (21-32) mEq/L Anion Gap (5-15) BUN (7-18) mg/dL Creatinine (0.55-1.02) mg/dL Est Cr Clr Drug Dosing mL/min Estimated GFR (MDRD) (>60) mL/min BUN/Creatinine Ratio (14-18) Glucose (74-106) mg/dL POC Glucose 135 H 189 H 344 H (70-105) mg/dL Calcium (8.5-10.1) mg/dL Magnesium (1.8-2.4) mg/dl C-Reactive Protein (<1.0) mg/dL 12/12/16 12/12/16 Range/Units 13:44 15:52 WBC (3.98-10.04) K/mm3 RBC (3.98-5.22) M/mm3 Hgb (11.2-15.7) gm/L Hct (34.1-44.9) % MCV (79.4-94.8) fl MCH (25.6-32.2) pg MCHC (32.2-35.5) g/dl RDW Std Deviation (36.4-46.3) fL Plt Count (182-369) K/mm3 MPV (9.4-12.3) fl Neut % (Auto) (34.0-71.1) % Lymph % (Auto) (19.3-51.7) % [place] % (Auto) (4.7-12.5) % Eos % (Auto) (0.7-5.8) Baso % (Auto) (0.1-1.2) % Neut # (1.56-6.13) K/mm3 Lymph # (1.18-3.74) K/mm3 [place] # (0.24-0.36) K/mm3 Eos # (0.04-0.36) K/mm3 Baso # (0.01-0.08) K/mm3 Manual Slide Review Sodium (136-145) mEq/L Potassium (3.5-5.1) mEq/L Chloride (98-107) mEq/L Carbon Dioxide (21-32) mEq/L Anion Gap (5-15) BUN (7-18) mg/dL Creatinine (0.55-1.02) mg/dL Est Cr Clr Drug Dosing mL/min Estimated GFR (MDRD) (>60) mL/min BUN/Creatinine Ratio (14-18) Glucose (74-106) mg/dL POC Glucose 300 H 226 H (70-105) mg/dL Calcium (8.5-10.1) mg/dL Magnesium (1.8-2.4) mg/dl C-Reactive Protein (<1.0) mg/dL Med Orders - Current: Current Medications Acetaminophen (Tylenol) 650 mg PO Q4H PRN PRN Reason: Pain (Mild 1-3)/fever Acetaminophen/Hydrocodone Bitart ([place] 325-5 Mg) 1 tab PO Q4H PRN PRN Reason: Pain (moderate 4-6) Albuterol/Ipratropium (Duoneb 3.0-0.5 Mg/3 Ml) 3 ml NEB Q4H PRN PRN Reason: Shortness Of Breath/wheezing Bisacodyl (Dulcolax) 5 mg PO DAILY PRN PRN Reason: Constipation Bupropion HCl (Wellbutrin Xl) 150 mg PO DAILY JASWINDER Last Admin: 12/12/16 10:14 Dose: 150 mg Duloxetine HCl (Cymbalta) 30 mg PO DAILY JASWINDER Last Admin: 12/12/16 10:14 Dose: 30 mg Enoxaparin Sodium (Lovenox) 40 mg SUBCUT DAILY JASWINDER Hydromorphone HCl (Dilaudid) 0.25 mg IVPUSH Q2H PRN PRN Reason: Pain (severe 7-10) Insulin Human Regular 100 unit (/ Sodium Chloride) 100 mls @ 6 mls/hr IV TITRATE JASWINDER; 6 UNITS/HR PRN Reason: Protocol Last Titration: 12/12/16 10:26 Dose: 2 units/hr, 2 mls/hr Promethazine HCl 12.5 mg/ (Sodium Chloride) 50.5 mls @ 100 mls/hr IV Q6H PRN PRN Reason: Nausea/Vomiting Sodium Chloride (Normal Saline) 1,000 mls @ 125 mls/hr IV ASDIRECTED [facility] Loratadine (Claritin) 10 mg PO DAILY [facility] Last Admin: 12/12/16 10:14 Dose: 10 mg Lorazepam (Ativan) 1 mg IV Q6H PRN PRN Reason: Anxiety Metoclopramide HCl (Reglan) 10 mg PO BID PRN PRN Reason: Heartburn Mometasone Furoate/Formoterol Fumar (Dulera 100-5 Mcg) 2 puff IH BID [facility] Last Admin: 12/12/16 10:22 Dose: 2 puff Ondansetron HCl (Zofran) 4 mg IV Q6H PRN PRN Reason: Nausea/Vomiting Pantoprazole Sodium (Protonix Iv) 40 mg IV Q12HR [facility] Last Admin: 12/12/16 10:15 Dose: 40 mg Fluticasone Furoate [Arnuity Ellipta] 1 [place] 0 each INH ASDIRECTED [facility] Polyethylene Glycol (Miralax) 17 gm PO DAILY PRN PRN Reason: Constipation Senna/Docusate Sodium (Senna Plus) 1 tab PO BID PRN PRN Reason: Constipation Temazepam (Restoril) 30 mg PO BEDTIME PRN PRN Reason: Sleep Last Admin: 12/12/16 03:00 Dose: 30 mg Discontinued Medications Dextrose/Water (Dextrose 50% In Water) 25 ml IVPUSH ONETIME ONE Stop: 12/12/16 10:16 Last Admin: 12/12/16 10:15 Dose: 25 ml Enoxaparin Sodium (Lovenox) 30 mg SUBCUT DAILY [facility] Last Admin: 12/12/16 10:14 Dose: 30 mg Sodium Chloride (Normal Saline) 1,000 mls @ 1,000 mls/hr IV ONETIME ONE Stop: 12/11/16 23:39 Last Admin: 12/11/16 22:50 Dose: 1,000 mls/hr Insulin Human Regular (Humulin R) 7 unit SUBCUT ONETIME STA PRN Reason: Protocol Stop: 12/11/16 22:42 Last Admin: 12/11/16 22:49 Dose: 7 unit Non-Formulary Medication (Insulin Aspart) 1 injection SQ ASDIRECTED JASWINDER Ondansetron HCl (Zofran) 8 mg IVPUSH ONETIME ONE Stop: 12/11/16 22:50 Last Admin: 12/11/16 22:54 Dose: 8 mg - Exam Physical Findings Comments:: Was not able to examine her, she Left AMA *Q Meaningful Use (DIS) - VTE *Q VTE Criteria *Q: - Stroke *Q Stroke Criteria *Q: - AMI *Q AMI Criteria *Q:
[2016-12-13] MEDS ORDERED: Enoxaparin 40 MG/0.4 ML Syringe SUBCUT SCH (09:00)
--- NOTE | 2016-12-14 08:02 | CR ---
Chest: Two views of the chest were obtained. Comparison: Previous chest x-ray of 11/16/16. Symmetric nodules are identified within both lung bases believed to represent nipple densities. Lungs are clear with no acute infiltrates. Heart size and mediastinum are normal. Bony structures are unremarkable. Impression: 1. Nothing acute is identified on two-view chest x-ray. Diagnostic code #1
== END 2016-12-12 17:40 | disposition left against medical advice (07) | DRG 639 ==
LOC: JD.ED 22:16 → JD.ICU 23:59
PROVIDERS: ADMIT Internal Medicine; ATTEND Internal Medicine
DX: E10.10 Type 1 diabetes mellitus with ketoacidosis without coma (principal); Z79.4 Long term (current) use of insulin; Z96.41 Presence of insulin pump (external) (internal); E86.0 Dehydration; J45.909 Unspecified asthma, uncomplicated; Z79.899 Other long term (current) drug therapy; Z88.8 Allergy status to other drugs, medicaments and biological substances; Z88.2 Allergy status to sulfonamides; Z88.1 Allergy status to other antibiotic agents; Z91.048 Other nonmedicinal substance allergy status; F32.9 Major depressive disorder, single episode, unspecified; F17.200 Nicotine dependence, unspecified, uncomplicated
CPT/HCPCS: 36415; 36600; 71020; 71020-26; 80048; 80053; 81001; 81025; 82009; 82803; 82962; 83605; 83735; 85025; 86140; 93005; 94664; 96365; 96366; 96372; 96375; 99285; 99285-25; A9270-GY; C9113; J1650; J1817; J2405; J7030; J7040; J7060

== ENCOUNTER 2018-06-01 14:26 | Emergency (ER) | payer OTHER, SELFPAY ==
--- NOTE | 2018-06-01 14:41 | EDM.PDOC ---
ED HPI GENERAL MEDICAL PROBLEM - General Chief Complaint: Diabetic Complaint Stated Complaint: DEHYDRATED Time Seen by Provider: 06/01/18 14:41 Source of Information: Reports: Patient - History of Present Illness INITIAL COMMENTS - FREE TEXT/NARRATIVE: Patient is here for primary complaint of feeling weak and overall "off". Also states that she has been fairly shaky today. Patient states that she really notices symptoms several days ago, was evaluated in the [place] [facility] as her PCP here in [place] is currently deployed. Patient also reports that her blood sugars have been higher, reaching up into the 300s lately. She has been doing several more boluses of insulin to correct this. Patient states that she feels like she is "dehydrated" she has been drinking Powerade 0 but still notes that her urine is fairly dark. Bedside glucose upon arrival is 252. Patient also reports sinus congestion and wheezing recently. She states that she does have chronic allergies, is on Claritin and Flonase nasal spray and Sudafed for this daily. Denies history of asthma, states that she does smoke approximately one half pack per day. Lower Leg Pain Score (Numeric/FACES): 6 - Related Data Allergies Allergy/AdvReac Type Severity Reaction Status Date / Time celecoxib [From Celebrex] Allergy Shortness Verified 06/01/18 14:34 of Breath cephalexin Allergy Rash Verified 06/01/18 14:34 gabapentin Allergy Chest Verified 06/01/18 14:34 Tightness metronidazole [From Flagyl] Allergy Other Verified 06/01/18 14:34 sulfamethoxazole Allergy Other Verified 06/01/18 14:34 [From Bactrim] trimethoprim [From Bactrim] Allergy Other Verified 06/01/18 14:34 adhesives Allergy Rash Uncoded 06/01/18 14:34 Home Meds: Home Meds Albuterol [Proair HFA] 2 puff INH Q4HR PRN 11/16/16 [History] Albuterol [Proventil Neb Soln] 1 hr INH QID PRN 11/16/16 [History] Fluticasone Furoate [Arnuity Ellipta] 1 spray INH ASDIRECTED 11/16/16 [History] Ibuprofen [Motrin] 800 mg PO BID 11/16/16 [History] Insulin Aspart [NovoLOG] 1 injection SQ ASDIRECTED 11/16/16 [History] Loratadine [Claritin] 10 mg PO DAILY 11/16/16 [History] Mometasone/Formoterol [Dulera 100-5 MCG] 2 puff INH BID 11/16/16 [History] Amoxicillin 875 mg PO BID 06/01/18 [History] DULoxetine [Cymbalta] 30 mg PO DAILY 06/01/18 [History] Fluconazole [Diflucan] 150 mg PO ASDIRECTED 06/01/18 [History] Insulin Glarg,Human.Rec.Analog [Lantus Solostar] 8 unit SQ 06/01/18 [History] Insulin Glarg,Human.Rec.Analog [Lantus Solostar] 12 unit SQ DAILY 06/01/18 [ History] Metoprolol Succinate 50 mg PO DAILY 06/01/18 [History] buPROPion HCl [Wellbutrin Xl] 150 mg PO DAILY #30 tab.sr.24h 06/01/18 [Rx] Past Medical History HEENT History: Reports: Allergic Rhinitis Respiratory History: Reports: Asthma 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 Psychiatric History: Reports: Depression Endocrine/Metabolic History: Reports: Diabetes, Type I - Past Surgical History HEENT Surgical History: Reports: Oral Surgery Female Surgical History: Reports: Tubal Ligation, Other (See Below) Musculoskeletal Surgical History: Reports: Carpal Tunnel, Shoulder Surgery Social & Family History - Tobacco Use Smoking Status *Q: Current Every Day Smoker Years of Tobacco use: 20 Packs/Tins Daily: 0.5 - Caffeine Use Caffeine Use: Reports: Coffee, Soda, Tea - Recreational Drug Use Recreational Drug Use: No - Living Situation & Occupation Living situation: Reports: , with Significant Other Occupation: Employed ED ROS GENERAL - Review of Systems Review Of Systems: See Below Constitutional: Reports: Weakness, Fatigue, Decreased Appetite. Denies: Fever, Chills HEENT: Reports: No Symptoms Respiratory: Reports: No Symptoms Cardiovascular: Reports: No Symptoms GI/Abdominal: Reports: Decreased Appetite, Nausea. Denies: Abdominal Pain, Diarrhea, Vomiting : Denies: Dysuria Musculoskeletal: Reports: No Symptoms Skin: Reports: Wound ED EXAM GENERAL NO PERIP PULSE - Physical Exam Exam: See Below Exam Limited By: No Limitations General Appearance: Alert, WD/WN, No Apparent Distress, Other (Patient smells very strongly of cigarette smoke) Eye Exam: Bilateral Eye: PERRL Ears: Normal External Exam, Normal Canal, Hearing Grossly Normal, Normal TMs Nose: Normal Inspection, Normal Mucosa. No: Nasal Drainage Throat/Mouth: Normal Oropharynx Head: Atraumatic, Normocephalic Neck: Normal Inspection, Supple, Non-Tender, Full Range of Motion Respiratory/Chest: No Respiratory Distress, Lungs Clear, Normal Breath Sounds, No Accessory Muscle Use Cardiovascular: Normal Peripheral Pulses, Regular Rate, Rhythm, No Murmur GI/Abdominal: Normal Bowel Sounds, Soft, Non-Tender Neurological: Alert, Oriented, No Motor/Sensory Deficits Psychiatric: Normal Affect, Normal Mood Skin Exam: Warm, Dry, Intact Course - Vital Signs Last Recorded V/S: Last Vital Signs Temp 98.0 F 06/01/18 16:42 Pulse 82 06/01/18 16:42 Resp 18 06/01/18 16:42 BP 140/90 06/01/18 16:42 Pulse Ox 100 06/01/18 16:42 - Orders/Labs/Meds Orders: Active Orders 24 hr Category Date Time Status Blood Glucose Check, Bedside [RC] ONETIME Care 06/01/18 14:45 Active CXR [Chest 2V] [CR] Stat Exams 06/01/18 15:34 Taken UA W/MICROSCOPIC [URIN] Stat Lab 06/01/18 15:10 Ordered Labs: Laboratory Tests 06/01/18 06/01/18 06/01/18 Range/Units 14:48 15:05 15:05 WBC 6.66 (3.98-10.04) K/mm3 RBC 4.96 (3.98-5.22) M/mm3 Hgb 16.2 H (11.2-15.7) gm/L Hct 46.9 H (34.1-44.9) % MCV 94.6 (79.4-94.8) fl MCH 32.7 H (25.6-32.2) pg MCHC 34.5 (32.2-35.5) g/dl RDW Std Deviation 43.4 (36.4-46.3) fL Plt Count 323 (182-369) K/mm3 MPV 10.7 (9.4-12.3) fl Neutrophils % (Manual) 59 (40-60) % Band Neutrophils % 0 (0-10) % Lymphocytes % (Manual) 26 (20-40) % Atypical Lymphs % 0 % Monocytes % (Manual) 13 H (2-10) % Eosinophils % (Manual) 2 (0.7-5.8) % Basophils % (Manual) 0 L (0.1-1.2) Platelet Estimate Adequate Plt Morphology Comment Normal RBC Morph Comment Normal Sodium 136 (136-145) mEq/L Potassium 4.0 (3.5-5.1) mEq/L Chloride 100 (98-107) mEq/L Carbon Dioxide 28 (21-32) mEq/L Anion Gap 12.0 (5-15) BUN 10 (7-18) mg/dL Creatinine 0.8 (0.55-1.02) mg/dL Est Cr Clr Drug Dosing 79.91 mL/min Estimated GFR (MDRD) > 60 (>60) mL/min BUN/Creatinine Ratio 12.5 L (14-18) Glucose 247 H (74-106) mg/dL POC Glucose 252 H (70-105) mg/dL Hemoglobin A1c (4.50-6.20) % Calcium 8.9 (8.5-10.1) mg/dL Total Bilirubin 0.6 (0.2-1.0) mg/dL AST 19 (15-37) U/L ALT 23 (14-59) U/L Alkaline Phosphatase 51 (46-116) U/L C-Reactive Protein < 0.2 (<1.0) mg/dL Total Protein 6.8 (6.4-8.2) g/dl Albumin 3.5 (3.4-5.0) g/dl Globulin 3.3 gm/dL Albumin/Globulin Ratio 1.1 (1-2) TSH 3rd Generation 0.837 (0.358-3.74) uIU/mL Urine Color (Yellow) Urine Appearance (Clear) Urine pH (5.0-8.0) Ur Specific [place] (1.005-1.030) Urine Protein (Negative) Urine Glucose (UA) (Negative) Urine Ketones (Negative) Urine Occult Blood (Negative) Urine Nitrite (Negative) Urine Bilirubin (Negative) Urine Urobilinogen (0.2-1.0) Ur Leukocyte Esterase (Negative) Urine RBC (0-5) /hpf Urine WBC (0-5) /hpf Ur Epithelial Cells (0-5) /hpf Urine Bacteria (FEW) /hpf Urine Mucus (FEW) /hpf Urine HCG, Qual (NEGATIVE) 09/05/18 09/05/18 09/05/18 Range/Units 15:05 15:10 15:10 WBC (3.98-10.04) K/mm3 RBC (3.98-5.22) M/mm3 Hgb (11.2-15.7) gm/L Hct (34.1-44.9) % MCV (79.4-94.8) fl MCH (25.6-32.2) pg MCHC (32.2-35.5) g/dl RDW Std Deviation (36.4-46.3) fL Plt Count (182-369) K/mm3 MPV (9.4-12.3) fl Neutrophils % (Manual) (40-60) % Band Neutrophils % (0-10) % Lymphocytes % (Manual) (20-40) % Atypical Lymphs % % Monocytes % (Manual) (2-10) % Eosinophils % (Manual) (0.7-5.8) % Basophils % (Manual) (0.1-1.2) Platelet Estimate Plt Morphology Comment RBC Morph Comment Sodium (136-145) mEq/L Potassium (3.5-5.1) mEq/L Chloride (98-107) mEq/L Carbon Dioxide (21-32) mEq/L Anion Gap (5-15) BUN (7-18) mg/dL Creatinine (0.55-1.02) mg/dL Est Cr Clr Drug Dosing mL/min Estimated GFR (MDRD) (>60) mL/min BUN/Creatinine Ratio (14-18) Glucose (74-106) mg/dL POC Glucose (70-105) mg/dL Hemoglobin A1c 7.90 H (4.50-6.20) % Calcium (8.5-10.1) mg/dL Total Bilirubin (0.2-1.0) mg/dL AST (15-37) U/L ALT (14-59) U/L Alkaline Phosphatase (46-116) U/L C-Reactive Protein (<1.0) mg/dL Total Protein (6.4-8.2) g/dl Albumin (3.4-5.0) g/dl Globulin gm/dL Albumin/Globulin Ratio (1-2) TSH 3rd Generation (0.358-3.74) uIU/mL Urine Color Yellow (Yellow) Urine Appearance Clear (Clear) Urine pH 6.0 (5.0-8.0) Ur Specific [place] 1.020 (1.005-1.030) Urine Protein Negative (Negative) Urine Glucose (UA) 2+ H (Negative) Urine Ketones Negative (Negative) Urine Occult Blood Negative (Negative) Urine Nitrite Negative (Negative) Urine Bilirubin Negative (Negative) Urine Urobilinogen 0.2 (0.2-1.0) Ur Leukocyte Esterase Negative (Negative) Urine RBC 0-5 (0-5) /hpf Urine WBC 0-5 (0-5) /hpf Ur Epithelial Cells 0-5 (0-5) /hpf Urine Bacteria Not seen (FEW) /hpf Urine Mucus Not seen (FEW) /hpf Urine HCG, Qual Negative (NEGATIVE) Meds: Medications Discontinued Medications Generic Name Dose Route Start Last Admin Trade Name Freq PRN Reason Stop Dose Admin Sodium Chloride 1,000 mls @ 999 mls/hr 06/01/18 14:57 06/01/18 15:13 Normal Saline IV 06/01/18 15:57 999 mls/hr ONETIME ONE Administration Ondansetron HCl 4 mg 06/01/18 16:13 06/01/18 16:17 Zofran Odt PO 06/01/18 16:14 4 mg ONETIME ONE Administration - Re-Assessments/Exams Free Text/Narrative Re-Assessment/Exam: Patient reports feeling significantly better with IV fluids, still notes some nausea so Zofran will be given. 06/01/18 16:18 CXR unremarkable. WBC 6,660. No sign of infection on exam. CRP <0.2 Hgb elevated at 16.2. Patient reports previous negative sleep study. She does smoke cigarettes, reports about 1/2 ppd. 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 Discussed the option of Wellbutrin to help both her anxiety as well as her smoking cessation, patient states that she had been on this previously and it worked very well without side effect. She would like to resume this, will send one month the pharmacy and patient will establish with a new PCP in the clinic to follow-up within the next 1-2 weeks. Glucose is elevated at 247, anion gap is normal at 12.0. A1C 7.9%. UA positive for glucose 2+, no ketones. Patient has had difficulties with her insulin pump and difficulties following up with endocrinology. She states she is frustrating in having to drive to [place] for this, has had some difficulties with the responding to her phone calls. She has not had her insulin pump adjusted in some time. Patient expressed desire to establish with diabetic education locally. Will check with DE to see if she's comfortable handling patient's pump. Patient will continue to bolus and monitor her glucose 4 times a day. She is comfortable monitoring this. Will FU in clinic to establish with new PCP or return to ER for any new or worsening symptoms. 06/01/18 16:21 06/01/18 16:44 06/01/18 16:58 Departure - Departure Time of Disposition: 16:38 Disposition: Home, Self-Care 01 Clinical Impression: Nausea, Anxiety, Elevated hemoglobin, Tobacco use disorder Diabetes mellitus with hyperglycemia Qualifiers: Diabetes mellitus type: type 1 Qualified Code(s): E10.65 - Type 1 diabetes mellitus with hyperglycemia - Discharge Information Prescriptions: buPROPion HCl [Wellbutrin Xl] 150 mg PO DAILY #30 tab.sr.24h Instructions: Nausea, Adult, Insulin Treatment for Diabetes, Generalized Anxiety Disorder, Adult Referrals: Faith Brizuela [Physician] - Forms: ED Department Discharge Additional Instructions: Follow-up in the clinic with new PCP in the next week or return to ER for any new or worsening symptoms. - My Orders Last 24 Hours: My Active Orders 06/01/18 14:45 Blood Glucose Check, Bedside [RC] ONETIME 06/01/18 15:10 UA W/MICROSCOPIC [URIN] Stat 06/01/18 15:34 CXR [Chest 2V] [CR] Stat - Assessment/Plan Last 24 Hours: My Active Orders 06/01/18 14:45 Blood Glucose Check, Bedside [RC] ONETIME 06/01/18 15:10 UA W/MICROSCOPIC [URIN] Stat 06/01/18 15:34 CXR [Chest 2V] [CR] Stat
[2018-06-01] MEDS ORDERED: Sodium Chloride 0.9% 1,000 ML IV ONE (14:57)
[2018-06-01] MEDS ORDERED: Ondansetron 4 MG Tab.DIS PO ONE (16:13)
[2018-06-01 16:43] VITALS: BP 140/90
--- NOTE | 2018-06-02 11:51 | CR ---
Chest: Two views of the chest were obtained. Comparison: Prior chest x-ray of 12/11/16. Heart size and mediastinum are within normal limits. Lungs are clear. Bony structures are unremarkable. Diaphragms are slightly flattened on the lateral view. Impression: 1. Flattened diaphragms on the lateral view. Findings may represent change from chronic asthma or smoking. Please correlate. 2. Nothing acute is otherwise seen. Diagnostic code #2
== END 2018-06-01 16:50 | disposition home or self-care (01) ==
LOC: JD.ED 14:26
DX: E10.65 Type 1 diabetes mellitus with hyperglycemia (principal); F41.9 Anxiety disorder, unspecified; R71.8 Other abnormality of red blood cells; Z72.0 Tobacco use; F17.210 Nicotine dependence, cigarettes, uncomplicated; Z79.4 Long term (current) use of insulin; Z91.09 Other allergy status, other than to drugs and biological substances; Z88.2 Allergy status to sulfonamides; Z79.899 Other long term (current) drug therapy; Z88.1 Allergy status to other antibiotic agents; Z88.8 Allergy status to other drugs, medicaments and biological substances
CPT/HCPCS: 36415; 71046; 80053; 81001; 81025; 82962; 83036; 84443; 85007; 85027; 86140; 96360; 99285; A9270; J7040; 99284

== ENCOUNTER 2018-10-07 00:40 | Emergency (ER) | payer OTHER ==
[2018-10-07 00:55] VITALS: BP 151/93
--- NOTE | 2018-10-07 00:58 | EDM.PDOC ---
ED HPI GENERAL MEDICAL PROBLEM - General Chief Complaint: Lower Extremity Injury/Pain Stated Complaint: RIGHT LEG INJURIED FELL ON THE ICE Time Seen by Provider: 10/07/18 00:53 Source of Information: Reports: Patient, Family (parents ) History Limitations: Reports: No Limitations - History of Present Illness INITIAL COMMENTS - FREE TEXT/NARRATIVE: 48-year-old female presents to the ED complaining of severe right lateral ankle and foot pain. Patient states she was taking garbage out around 2130 hrs. last night and slipped on the ice outside the dumpster. This caused her to fall to the ground. She believes that there was an inversion injury to her ankle. At present she can't weight-bear she's hopping on one leg. Denies any other injuries. She feels pain radiating up the posterior aspect of her ankle in the distribution of the Achilles tendon as well. Onset: Sudden Onset Date: 10/06/18 Onset Time: 21:30 Duration: Hour(s): Location: Reports: Lower Extremity, Right (Injuries to the right lateral ankle right lateral foot and posterior ankle) Quality: Reports: Ache, Throbbing Severity: Moderate Improves with: Reports: None Worsens with: Reports: Other, Movement Context: Reports: Trauma (Inversion injury to the right ankle). 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 Allergy Other Uncoded 10/07/18 00:49 Home Meds: Home Meds Albuterol [Proair HFA] 2 puff INH Q4HR PRN 11/16/16 [History] Albuterol [Proventil Neb Soln] 1 hr INH QID PRN 11/16/16 [History] Fluticasone Furoate [Arnuity Ellipta] 1 spray INH ASDIRECTED 11/16/16 [History] Ibuprofen [Motrin] 800 mg PO BID 11/16/16 [History] Insulin Aspart [NovoLOG] 1 injection SQ ASDIRECTED 11/16/16 [History] Loratadine [Claritin] 10 mg PO DAILY 11/16/16 [History] Mometasone/Formoterol [Dulera 100-5 MCG] 2 puff INH BID 11/16/16 [History] Amoxicillin 875 mg PO BID 06/01/18 [History] DULoxetine [Cymbalta] 30 mg PO DAILY 06/01/18 [History] Fluconazole [Diflucan] 150 mg PO ASDIRECTED 06/01/18 [History] Insulin Glarg,Human.Rec.Analog [Lantus Solostar] 8 unit SQ 06/01/18 [History] Insulin Glarg,Human.Rec.Analog [Lantus Solostar] 12 unit SQ DAILY 06/01/18 [ History] Metoprolol Succinate 50 mg PO DAILY 06/01/18 [History] buPROPion HCl [Wellbutrin Xl] 150 mg PO DAILY #30 tab.sr.24h 06/01/18 [Rx] oxyCODONE HCl [Roxicodone] 5 mg PO Q4H PRN #16 tablet 10/07/18 [Rx] Past Medical History HEENT History: Reports: Allergic Rhinitis Respiratory History: Reports: Asthma 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 ) - Past Surgical History HEENT Surgical History: Reports: Oral Surgery Female Surgical History: Reports: Tubal Ligation, Other (See Below) Musculoskeletal Surgical History: Reports: Carpal Tunnel, Shoulder Surgery Social & Family History - Caffeine Use Caffeine Use: Reports: Coffee, Soda, Tea - Living Situation & Occupation Living situation: Reports: , with Significant Other Occupation: Employed Review of Systems - Review of Systems Review Of Systems: See Below Constitutional: Reports: No Symptoms Eyes: Reports: No Symptoms Ears: Reports: No Symptoms Nose: Reports: No Symptoms Mouth/Throat: Reports: No Symptoms Respiratory: Reports: No Symptoms Cardiovascular: Reports: No Symptoms GI/Abdominal: Reports: No Symptoms Genitourinary: Reports: Other (Urinary frequency) Musculoskeletal: Reports: Foot Pain (Currently having severe pain right lateral ankle and foot), Joint Pain Skin: Reports: No Symptoms, Other Neurological: Reports: No Symptoms (Has multiple scratches on her upper extremities from her dog), Other (Moderate peripheral neuropathy.) Psychiatric: Reports: Other (Has depression and is on medication for this.) ED EXAM, GENERAL - Physical Exam Exam: See Below Exam Limited By: No Limitations General Appearance: Alert, WD/WN, Anxious, Mild Distress Peripheral Pulses: 3+: Posterior Tibial (L), Posterior Tibial (R), Dorsalis Pedis (L), Dorsalis Pedis (R) Extremities: Other (Examination was limited to the right lower extremity. She does have pain along the distribution of the Achilles tendon but it is intact. She does have full dorsiflexion. Pain and swelling lateral ankle. No medial joint) Neurological: Alert ( tenderness. Is also tenderness to palpation over the fifth metatarsal head without any obvious swelling in this area.), Oriented, CN II-XII Intact, Normal Cognition Psychiatric: Anxious Skin Exam: Warm, Dry, Intact, Normal Color, No Rash ED TRAUMA EXTREMITY PROCEDURES - Splinting Right Lower Extremity Splint Site: below knee Rt leg Pre-Procedure NV Status: Normal Post-Procedure NV Status: Normal Splint Material: Fiberglass Splint Design: Stirrup, Posterior Applied & Form Fitted By: Provider Provider Post-Splint Application NV Check: NV Status Normal Complications: No Course - Vital Signs Last Recorded V/S: Last Vital Signs Temp 36.2 C 10/07/18 00:52 Pulse 90 10/07/18 00:52 Resp 18 10/07/18 00:52 BP 151/93 H 10/07/18 00:52 Pulse Ox 97 10/07/18 00:52 - Orders/Labs/Meds Orders: Active Orders 24 hr Category Date Time Status Ankle Min 3V Rt [CR] Stat Exams 10/07/18 00:53 Taken Foot Comp Min 3V Rt [CR] Stat Exams 10/07/18 00:54 Taken Meds: Medications Discontinued Medications Generic Name Dose Route Start Last Admin Trade Name Freq PRN Reason Stop Dose Admin Ondansetron HCl 4 mg 10/07/18 01:35 10/07/18 01:47 Zofran Odt PO 10/07/18 01:36 Not Given ONETIME ONE Oxycodone/Acetaminophen 2 tab 10/07/18 01:34 10/07/18 01:47 Percocet 325-5 Mg PO 10/07/18 01:35 2 tab ONETIME ONE Administration - Radiology Interpretation Free Text/Narrative:: 48-year-old female presents to the ED with an inversion injury to her right ankle at occurred about 4 hours ago. She is unable to weight-bear because of pain lateral aspect of the ankle. She also has some pain in the distribution of the Achilles tendon but is intact without any localized swelling. Plan x-ray of the right ankle and foot to be done. She does have mild diabetic neuropathy in both feet. - Re-Assessments/Exams Free Text/Narrative Re-Assessment/Exam: 10/07/18 01:05: X-rays of the ankle confirm a nondisplaced fracture of the distal fibula. Ankle mortise is well maintained. Trace of the right foot are normal without any fracture of the fifth metatarsal head. Patient will be placed in a posterior slab Ortho-Glass splint and stirrup splint to immobilize the fracture until swelling goes down. She will follow-up with orthopedic surgery early next week Wednesday or Wednesday for cast placement 10/07/18 01:36: Splint has been placed. We'll give Percocet tabs 5/325 mg 2 by mouth with Zofran 4 mg sublingually for pain relief overnight. Her new glucose monitor does not like Tylenol in the system is a continues as it. Therefore I will prescribe Roxicodone 5 mg tablets to be used when necessary for pain relief for the next few days Departure - Departure Time of Disposition: 01:37 Disposition: Home, Self-Care 01 Condition: Fair Clinical Impression: Fracture of distal end of right fibula Qualifiers: Encounter type: initial encounter Fracture type: closed Fracture morphology: torus Qualified Code(s): S82.821A - Torus fracture of lower end of right fibula , initial encounter for closed fracture - Discharge Information *PRESCRIPTION DRUG MONITORING PROGRAM REVIEWED*: Not Applicable *COPY OF PRESCRIPTION DRUG MONITORING REPORT IN PATIENT MARC: Not Applicable Prescriptions: oxyCODONE HCl [Roxicodone] 5 mg PO Q4H PRN #16 tablet PRN Reason: Pain relief Instructions: Crutch Use, Adult, [id number], Cast or Splint Care, Adult, Easy -to-Read, Ankle Fracture, [id number] Referrals: Ke Chappell MD [Primary Care Provider] - Forms: ED Department Discharge Additional Instructions: Evaluation the emergent tonight in regards to acute injury to your right ankle that occurred when he slipped on the ice outside. X-rays confirm a nondisplaced fracture of the distal fibula or outside ankle bone. You're therefore placed in an Ortho-Glass posterior slab and stirrup splint to immobilize the area but will allow for swelling. Elevate the foot is much as possible for the next 3 days. May still plays ice pack over the splint for one half hour out of every 4 hours for the next 2 days. Pain medication is to be Roxicodone 5 mg tablet 1 or 2 every 4-6 hours needed for severe pain for the first 3-4 days. He will need to make an appointment tomorrow morning with orthopedic surgeon Dr. Burroughs- please call [phone] to arrange an appointment for cast placement on her broken ankle Wednesday or Wednesday next week. If he is unavailable next week please call Dr. Mason's office at [phone] to arrange appointment for Wednesday or Wednesday for cast placement. - My Orders Last 24 Hours: My Active Orders 10/07/18 00:53 Ankle Min 3V Rt [CR] Stat 10/07/18 00:54 Foot Comp Min 3V Rt [CR] Stat - Assessment/Plan Last 24 Hours: My Active Orders 10/07/18 00:53 Ankle Min 3V Rt [CR] Stat 10/07/18 00:54 Foot Comp Min 3V Rt [CR] Stat
[2018-10-07] MEDS ORDERED: Acetaminophen/oxyCODONE 325-5 MG Tab PO ONE (01:34)
[2018-10-07] MEDS ORDERED: Ondansetron 4 MG Tab.DIS PO ONE (01:35)
--- NOTE | 2018-10-07 06:58 | CR ---
Right foot: Three views of the right foot were obtained. Comparison: No prior foot exam. Joint spaces are preserved. Nondisplaced lateral malleolus fracture is again seen. No additional fracture, dislocation or other bony abnormality is seen. Impression: 1. Nondisplaced lateral malleolar fracture is again noted. 2. Right foot study is otherwise unremarkable. Diagnostic code #2
--- NOTE | 2018-10-07 07:01 | CR ---
Right ankle: Four views of the right ankle were obtained. Comparison: No prior ankle study. Nondisplaced lateral malleolus fracture is identified. Ankle mortise is symmetric. Soft tissue swelling is seen. No additional fracture or other bony abnormality is seen. Impression: 1. Nondisplaced lateral malleolar fracture with soft tissue swelling. Diagnostic code #3
== END 2018-10-07 01:55 | disposition home or self-care (01) ==
LOC: JD.ED 00:40
DX: S82.821A Torus fracture of lower end of right fibula, initial encounter for closed fracture (principal); J45.909 Unspecified asthma, uncomplicated; E10.9 Type 1 diabetes mellitus without complications; F17.210 Nicotine dependence, cigarettes, uncomplicated; Z88.8 Allergy status to other drugs, medicaments and biological substances; Z88.1 Allergy status to other antibiotic agents; Z79.899 Other long term (current) drug therapy; W00.0XXA Fall on same level due to ice and snow, initial encounter
CPT/HCPCS: 29515; 73610; 73630; 99284; A9270; 99283

== ENCOUNTER 2018-11-07 12:09 | Emergency (ER) | payer OTHER ==
[2018-11-07 12:25] VITALS: BP 142/78
[2018-11-07] MEDS ORDERED: Ondansetron 4 MG/2 ML SDV IVPUSH ONE (12:41)
[2018-11-07] MEDS ORDERED: Sodium Chloride 0.9% 1,000 ML IV STA (12:41)
[2018-11-07] MEDS ORDERED: Sodium Chloride 0.9% 10 ML Syringe FLUSH PRN ×2 (12:41→13:14)
[2018-11-07] MEDS ORDERED: HYDROmorphone 1 MG/ML Syringe IVPUSH ONE (12:42)
[2018-11-07] MEDS ORDERED: Iopamidol 612 MG/ML 100 ML Bottle IVPUSH ONE (13:14)
[2018-11-07] MEDS ORDERED: Diatrizoate Meglumine/Diatrizoate Sodium 37% 120 ML Bottle PO ONE (13:14)
--- NOTE | 2018-11-07 15:07 | CT ---
CT abdomen and pelvis Technique: Multiple axial sections were obtained from above the dome of the diaphragm inferiorly through the pubic symphysis. Intravenous and oral contrast was utilized. Delayed images were obtained through the bladder. Comparison: No prior abdominal or pelvic CT exam. Findings: Small portion of the visualized lung bases are clear. Liver contains no focal abnormality. Spleen appears within normal limits. Adrenal glands show no nodule. Gallbladder contains no calcified gallstones. Kidneys show symmetric contrast enhancement without hydronephrosis or mass. Delayed images show contrast within the distal ureters and within the bladder. Pancreas appears within normal limits. Aorta shows no aneurysm. No retroperitoneal adenopathy or mesenteric abnormalities are seen. No pelvic mass or adenopathy is seen. Appendix is seen which is normal in size. No inflammatory change or free fluid is seen. No bowel wall thickening is seen. Bone window settings were reviewed which appear within normal limits for the patient's age. Impression: 1. Nothing acute is seen on CT study of the abdomen and pelvis. Diagnostic code #1
--- NOTE | 2018-11-07 15:13 | EDM.PDOC ---
ED HPI GENERAL MEDICAL PROBLEM - General Chief Complaint: Abdominal Pain Stated Complaint: ABDOMINAL PAIN Time Seen by Provider: 11/07/18 12:26 Source of Information: Reports: Patient History Limitations: Reports: No Limitations - History of Present Illness INITIAL COMMENTS - FREE TEXT/NARRATIVE: The patient presents with abdominal pain, nausea and vomiting. This all started on Wednesday. The patient says her pain is in the lower abdomen. She has been vomiting when every she eats. She says her emesis smells like feces at times. She has no fever or chills. She still has her gallbladder and appendix. She has no dysuria. She has no diarrhea. She had a good bowel movement on Wednesday but not much since then. She is type I diabetic and she is on an insulin pump. She noticed last week that her blood sugars were starting to run a high. They have been high over the past few days. Onset: Gradual Duration: Day(s): Location: Reports: Abdomen Quality: Reports: Sharp Severity: Moderate Improves with: Reports: None Worsens with: Reports: None Associated Symptoms: Reports: Nausea/Vomiting. Denies: Chest Pain, Cough, Fever /Chills, Headaches, Shortness of Breath Lower Abdominal Pain Score (Numeric/FACES): 5 - Related Data Allergies Allergy/AdvReac Type Severity Reaction Status Date / Time celecoxib [From Celebrex] Allergy Shortness Verified 11/07/18 12:25 of Breath cephalexin Allergy Rash Verified 11/07/18 12:25 gabapentin Allergy Chest Verified 11/07/18 12:25 Tightness metronidazole [From Flagyl] Allergy Other Verified 11/07/18 12:25 sulfamethoxazole Allergy Other Verified 11/07/18 12:25 [From Bactrim] trimethoprim [From Bactrim] Allergy Other Verified 11/07/18 12:25 adhesives Allergy Rash Uncoded 11/07/18 12:25 vicryl sutures. Allergy Other Uncoded 11/07/18 12:25 Home Meds: Home Meds Albuterol [Proair HFA] 2 puff INH Q4HR PRN 11/16/16 [History] Albuterol [Proventil Neb Soln] 1 hr INH QID PRN 11/16/16 [History] Fluticasone Furoate [Arnuity Ellipta] 1 spray INH ASDIRECTED 11/16/16 [History] Ibuprofen [Motrin] 800 mg PO BID 11/16/16 [History] Insulin Aspart [NovoLOG] 1 injection SQ ASDIRECTED 11/16/16 [History] Loratadine [Claritin] 10 mg PO DAILY 11/16/16 [History] Mometasone/Formoterol [Dulera 100-5 MCG] 2 puff INH BID 11/16/16 [History] Amoxicillin 875 mg PO BID 06/01/18 [History] DULoxetine [Cymbalta] 30 mg PO DAILY 06/01/18 [History] Fluconazole [Diflucan] 150 mg PO ASDIRECTED 06/01/18 [History] Insulin Glarg,Human.Rec.Analog [Lantus Solostar] 8 unit SQ 06/01/18 [History] Insulin Glarg,Human.Rec.Analog [Lantus Solostar] 12 unit SQ DAILY 06/01/18 [ History] Metoprolol Succinate 50 mg PO DAILY 06/01/18 [History] buPROPion HCl [Wellbutrin Xl] 150 mg PO DAILY #30 tab.sr.24h 06/01/18 [Rx] oxyCODONE HCl [Roxicodone] 5 mg PO Q4H PRN #16 tablet 10/07/18 [Rx] Past Medical History HEENT History: Reports: Allergic Rhinitis Respiratory History: Reports: Asthma 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 SLICER History: Reports: Endometriosis Psychiatric History: Reports: Depression Endocrine/Metabolic History: Reports: Diabetes, Type I - Past Surgical History HEENT Surgical History: Reports: Oral Surgery Female Surgical History: Reports: Tubal Ligation, Other (See Below) Musculoskeletal Surgical History: Reports: Carpal Tunnel, Shoulder Surgery Social & Family History - Tobacco Use Smoking Status *Q: Current Every Day Smoker Years of Tobacco use: 20 Packs/Tins Daily: 0.5 - Caffeine Use Caffeine Use: Reports: Soda - Recreational Drug Use Recreational Drug Use: No - Living Situation & Occupation Living situation: Reports: , with Significant Other Occupation: Employed ED ROS GENERAL - Review of Systems Review Of Systems: See Below Constitutional: Reports: No Symptoms HEENT: Reports: No Symptoms Respiratory: Reports: No Symptoms Cardiovascular: Reports: No Symptoms Endocrine: Reports: No Symptoms GI/Abdominal: Reports: Abdominal Pain, Nausea, Vomiting. Denies: Diarrhea : Reports: No Symptoms Musculoskeletal: Reports: No Symptoms ED EXAM, GI/ABD - Physical Exam Exam: See Below Exam Limited By: No Limitations General Appearance: Alert, No Apparent Distress Ears: Normal External Exam Nose: Normal Inspection Head: Atraumatic, Normocephalic Neck: Normal Inspection Respiratory/Chest: No Respiratory Distress, Lungs Clear, Normal Breath Sounds Cardiovascular: Regular Rate, Rhythm, No Edema, No Murmur GI/Abdominal Exam: Soft, No Organomegaly, No Mass, Tender (Moderate tenderness to the lower abdomen) Back Exam: Normal Inspection Course - Vital Signs Last Recorded V/S: Last Vital Signs Temp 98.1 F 11/07/18 12:18 Pulse 94 11/07/18 12:18 Resp 16 11/07/18 12:18 BP 142/78 H 11/07/18 12:18 Pulse Ox 100 11/07/18 12:18 - Orders/Labs/Meds Orders: Active Orders 24 hr Category Date Time Status Peripheral IV Care [RC] . DIRECTED Care 11/07/18 12:41 Active Sodium Chloride 0.9% [Saline Flush] Med 11/07/18 12:41 Active 10 ml FLUSH ASDIRECTED PRN Sodium Chloride 0.9% [Saline Flush] Med 11/07/18 13:14 Active 10 ml FLUSH ONETIME PRN ED Antiemetic Medication Reflex [OM.PC] Stat Oth 11/07/18 12:41 Ordered Peripheral IV Insertion Adult [OM.PC] Stat Oth 11/07/18 12:41 Ordered Medication Orders Sodium Chloride (Saline Flush) 10 ml FLUSH ASDIRECTED PRN PRN Reason: Keep Vein Open Last Admin: 11/07/18 12:55 Dose: 10 ml Sodium Chloride (Saline Flush) 10 ml FLUSH ONETIME PRN PRN Reason: IV FLUSH Last Admin: 11/07/18 14:21 Dose: 10 ml Labs: Laboratory Tests 11/07/18 11/07/18 11/07/18 Range/Units 12:50 12:50 12:50 WBC 6.05 (3.98-10.04) K/mm3 RBC 4.55 (3.98-5.22) M/mm3 Hgb 14.6 (11.2-15.7) gm/L Hct 42.9 (34.1-44.9) % MCV 94.3 (79.4-94.8) fl MCH 32.1 (25.6-32.2) pg MCHC 34.0 (32.2-35.5) g/dl RDW Std Deviation 40.6 (36.4-46.3) fL Plt Count 289 (182-369) K/mm3 MPV 11.2 (9.4-12.3) fl Neut % (Auto) 64.1 (34.0-71.1) % Lymph % (Auto) 25.6 (19.3-51.7) % [place] % (Auto) 8.8 (4.7-12.5) % Eos % (Auto) 1.2 (0.7-5.8) Baso % (Auto) 0.3 (0.1-1.2) % Neut # (Auto) 3.88 (1.56-6.13) K/mm3 Lymph # (Auto) 1.55 (1.18-3.74) K/mm3 [place] # (Auto) 0.53 H (0.24-0.36) K/mm3 Eos # (Auto) 0.07 (0.04-0.36) K/mm3 Baso # (Auto) 0.02 (0.01-0.08) K/mm3 VBG pH (7.30-7.40) Sodium 138 (136-145) mEq/L Potassium 3.7 (3.5-5.1) mEq/L Chloride 100 (98-107) mEq/L Carbon Dioxide 29 (21-32) mEq/L Anion Gap 12.7 (5-15) BUN 7 (7-18) mg/dL Creatinine 0.7 (0.55-1.02) mg/dL Est Cr Clr Drug Dosing 92.19 mL/min Estimated GFR (MDRD) > 60 (>60) mL/min BUN/Creatinine Ratio 10.0 L (14-18) Glucose 148 H (74-106) mg/dL Serum Osmolality 287 (280-300) mosm/kg Calcium 8.8 (8.5-10.1) mg/dL Total Bilirubin 0.4 (0.2-1.0) mg/dL AST 20 (15-37) U/L ALT 23 (14-59) U/L Alkaline Phosphatase 56 (46-116) U/L Total Protein 6.8 (6.4-8.2) g/dl Albumin 3.7 (3.4-5.0) g/dl Globulin 3.1 gm/dL Albumin/Globulin Ratio 1.2 (1-2) Lipase 62 L (73-393) U/L HCG, Qual Negative (NEGATIVE) Urine Color (Yellow) Urine Appearance (Clear) Urine pH (5.0-8.0) Ur Specific [place] (1.005-1.030) Urine Protein (Negative) Urine Glucose (UA) (Negative) Urine Ketones (Negative) Urine Occult Blood (Negative) Urine Nitrite (Negative) Urine Bilirubin (Negative) Urine Urobilinogen (0.2-1.0) Ur Leukocyte Esterase (Negative) Urine RBC (0-5) /hpf Urine WBC (0-5) /hpf Ur Epithelial Cells (0-5) /hpf Urine Bacteria (FEW) /hpf Urine Mucus (FEW) /hpf Ketones (0.0-0.3) mM 11/07/18 11/07/18 11/07/18 Range/Units 12:50 13:00 13:13 WBC (3.98-10.04) K/mm3 RBC (3.98-5.22) M/mm3 Hgb (11.2-15.7) gm/L Hct (34.1-44.9) % MCV (79.4-94.8) fl MCH (25.6-32.2) pg MCHC (32.2-35.5) g/dl RDW Std Deviation (36.4-46.3) fL Plt Count (182-369) K/mm3 MPV (9.4-12.3) fl Neut % (Auto) (34.0-71.1) % Lymph % (Auto) (19.3-51.7) % [place] % (Auto) (4.7-12.5) % Eos % (Auto) (0.7-5.8) Baso % (Auto) (0.1-1.2) % Neut # (Auto) (1.56-6.13) K/mm3 Lymph # (Auto) (1.18-3.74) K/mm3 [place] # (Auto) (0.24-0.36) K/mm3 Eos # (Auto) (0.04-0.36) K/mm3 Baso # (Auto) (0.01-0.08) K/mm3 VBG pH 7.42 H (7.30-7.40) Sodium (136-145) mEq/L Potassium (3.5-5.1) mEq/L Chloride (98-107) mEq/L Carbon Dioxide (21-32) mEq/L Anion Gap (5-15) BUN (7-18) mg/dL Creatinine (0.55-1.02) mg/dL Est Cr Clr Drug Dosing mL/min Estimated GFR (MDRD) (>60) mL/min BUN/Creatinine Ratio (14-18) Glucose (74-106) mg/dL Serum Osmolality (280-300) mosm/kg Calcium (8.5-10.1) mg/dL Total Bilirubin (0.2-1.0) mg/dL AST (15-37) U/L ALT (14-59) U/L Alkaline Phosphatase (46-116) U/L Total Protein (6.4-8.2) g/dl Albumin (3.4-5.0) g/dl Globulin gm/dL Albumin/Globulin Ratio (1-2) Lipase (73-393) U/L HCG, Qual (NEGATIVE) Urine Color Yellow (Yellow) Urine Appearance Clear (Clear) Urine pH 7.5 (5.0-8.0) Ur Specific [place] 1.015 (1.005-1.030) Urine Protein Negative (Negative) Urine Glucose (UA) Negative (Negative) Urine Ketones Negative (Negative) Urine Occult Blood Negative (Negative) Urine Nitrite Negative (Negative) Urine Bilirubin Negative (Negative) Urine Urobilinogen 0.2 (0.2-1.0) Ur Leukocyte Esterase Negative (Negative) Urine RBC 0-5 (0-5) /hpf Urine WBC 0-5 (0-5) /hpf Ur Epithelial Cells 0-5 (0-5) /hpf Urine Bacteria Not seen (FEW) /hpf Urine Mucus Not seen (FEW) /hpf Ketones 0.2 (0.0-0.3) mM Meds: Medications Generic Name Dose Route Start Last Admin Trade Name Freq PRN Reason Stop Dose Admin Sodium Chloride 10 ml 11/07/18 12:41 11/07/18 12:55 Saline Flush FLUSH 10 ml ASDIRECTED PRN Administration Keep Vein Open Sodium Chloride 10 ml 11/07/18 13:14 11/07/18 14:21 Saline Flush FLUSH 10 ml ONETIME PRN Administration IV FLUSH Discontinued Medications Generic Name Dose Route Start Last Admin Trade Name Celestine PRN Reason Stop Dose Admin Diatrizoate Meglum/Diatrizoate Sod 120 ml 11/07/18 13:14 11/07/18 14:21 Gastrografin 37% PO 11/07/18 13:15 90 ml ONETIME ONE Administration Hydromorphone HCl 0.5 mg 11/07/18 12:42 11/07/18 12:57 Dilaudid IVPUSH 11/07/18 12:43 0.5 mg ONETIME ONE Administration Sodium Chloride 1,000 mls @ 1,000 mls/hr 11/07/18 12:41 11/07/18 12:55 Normal Saline IV 11/07/18 13:40 1,000 mls/hr .BOLUS STA Administration Iopamidol 100 ml 11/07/18 13:14 11/07/18 14:21 Isovue-300 (61%) IVPUSH 11/07/18 13:15 100 ml ONETIME ONE Administration Ondansetron HCl 4 mg 11/07/18 12:41 11/07/18 12:55 Zofran IVPUSH 11/07/18 12:42 4 mg ONETIME ONE Administration - Re-Assessments/Exams Free Text/Narrative Re-Assessment/Exam: 11/07/18 15:10 I ordered an IV NS 1L bolus, zofran 4mg IV, dilaudid 0.5mg IV, labs, UA and a CT of her abdomen and pelvis. Her CBC looks godo. Her pH was a little high at 7.42. Her glucose was 148. Her serum osmolality was normal at 287. Her lipase was low. Her HCG is negative. Her UA shows no UTI. Her ketones are normal. Her CT shows nothing acute is seen on CT study of the abdomen and pelvis. She feels better now and she is drinking some water. 11/07/18 15:28 She was able to hold down some crackers, but my nurse just tells me that she is not happy and would like to go. I do not see anything serious so I will discharge her. Departure - Departure Time of Disposition: 15:30 Disposition: Home, Self-Care 01 Condition: Good Clinical Impression: Abdominal pain Qualifiers: Abdominal location: lower abdomen, unspecified Qualified Code(s): R10.30 - Lower abdominal pain, unspecified Nausea and vomiting Qualifiers: Vomiting type: unspecified Vomiting Intractability: non-intractable Qualified Code(s): R11.2 - Nausea with vomiting, unspecified - Discharge Information *PRESCRIPTION DRUG MONITORING PROGRAM REVIEWED*: Not Applicable *COPY OF PRESCRIPTION DRUG MONITORING REPORT IN PATIENT MARC: Not Applicable Referrals: Ke Chappell MD [Primary Care Provider] - Forms: ED Department Discharge, ED Return to Work/School Form Additional Instructions: Drink plenty of fluids. Take the phenergan as needed for nausea and vomiting. Please return if you are worse. - My Orders Last 24 Hours: My Active Orders 11/07/18 12:41 Peripheral IV Care [RC] . DIRECTED Sodium Chloride 0.9% [Saline Flush] 10 ml FLUSH ASDIRECTED PRN ED Antiemetic Medication Reflex [OM.PC] Stat Peripheral IV Insertion Adult [OM.PC] Stat 11/07/18 13:14 Sodium Chloride 0.9% [Saline Flush] 10 ml FLUSH ONETIME PRN - Assessment/Plan Last 24 Hours: My Active Orders 11/07/18 12:41 Peripheral IV Care [RC] . DIRECTED Sodium Chloride 0.9% [Saline Flush] 10 ml FLUSH ASDIRECTED PRN ED Antiemetic Medication Reflex [OM.PC] Stat Peripheral IV Insertion Adult [OM.PC] Stat 11/07/18 13:14 Sodium Chloride 0.9% [Saline Flush] 10 ml FLUSH ONETIME PRN
== END 2018-11-07 15:38 | disposition home or self-care (01) ==
LOC: JD.ED 12:09
DX: R11.2 Nausea with vomiting, unspecified (principal); R10.30 Lower abdominal pain, unspecified; F17.210 Nicotine dependence, cigarettes, uncomplicated; Z88.8 Allergy status to other drugs, medicaments and biological substances; Z79.899 Other long term (current) drug therapy
CPT/HCPCS: 36415; 74177; 80053; 81001; 82009; 82800; 83690; 83930; 84703; 85025; 96361; 96374; 96375; 99284; J1170; J2405; J7040; Q9963; Q9967

== ENCOUNTER 2022-03-25 09:48 | Emergency (ER) | payer MEDICAID, OTHER ==
[2022-03-25 10:11] VITALS: BP 144/80; PULSE 92
[2022-03-25] MEDS ORDERED: Sodium Chloride 0.9% 1,000 ML IV ONE (10:18)
[2022-03-25] MEDS ORDERED: Ondansetron 4 MG/2 ML SDV IVPUSH ONE (10:18)
[2022-03-25] MEDS ORDERED: Sodium Chloride 0.9% 10 ML Syringe FLUSH PRN (10:18)
[2022-03-25 11:19] LABS: ESTIMATED GFR 78 mL/min (>60)
== END 2022-03-25 12:50 | disposition home or self-care (01) ==
LOC: JD.ED 09:48
DX: E10.65 Type 1 diabetes mellitus with hyperglycemia (principal); F17.210 Nicotine dependence, cigarettes, uncomplicated; Z88.1 Allergy status to other antibiotic agents; Z91.048 Other nonmedicinal substance allergy status
CPT/HCPCS: 36415; 80053; 81003; 82009; 83605; 83735; 85025; 86140; 96361; 96374; 99284; J2405; J7030; 99283